=== PATIENT | female | born 1945 | race Caucasian/White ===

== ENCOUNTER 2020-07-02 14:43 | Emergency (ER) | payer MEDICARE, OTHER ==
[2020-07-02 14:48] VITALS: RESP 20; TEMP 98
[2020-07-02] MEDS ORDERED: SODIUM CHLORIDE 0.9% 500 ML 500 ML IV STA (15:01)
--- NOTE | 2020-07-02 15:29 | ED ---
Dizziness HPI - General Chief Complaint: Dizziness Stated Complaint: Dizziness Time Seen by Provider: 07/02/20 14:55 Source: patient, family Mode of arrival: wheelchair Limitations: no limitations - History of Present Illness Initial Comments: Patient is a 75-year-old female, with history of COPD, diabetes, hypertension, presenting to the emergency Department with complaints of dizzy spells that have been intermittent for the past few weeks. Patient is accompanied by her daughter. Patient states that for the last few weeks she feels dizzy, intermi ttently when she lays down for bed, when she sits up from bed, when she stands up from bed. Patient states the spells only last for a few seconds. Patient's daughter states that some of the spells she does not remember falling. One particular time patient stood up from her bed and then the next thing she remembered she was sitting on the floor. Daughter states she was only out for a few seconds. Another instance was patient climbing 2 flights of stairs, and then felt like she might fall down. Patient states she is not dizzy at this time. She denies any chest pain, fever, chills, abdominal pain, nausea, vomiting. Patient states she feels like she is a little short of breath but she also has COPD and that is normal for her. She denies any new medications recently. She states she is no longer taking aspirin, because "she does not want to." There are no further complaints at this time. Upon arrival to the ER, her vital signs are stable. - Related Data Home Medications Medication Instructions Recorded Confirmed Insulin NPH/Reg Insulin 70/30 38 unit SQ BID 02/13/16 02/13/16 [humuLIN 70/30 VIAL] Omeprazole 20 mg PO DAILY 02/13/16 02/13/16 Venlafaxine HCl ER [Effexor XR] 150 mg PO BID 02/13/16 02/13/16 metFORMIN HCL [Glucophage] 850 mg PO BID 02/13/16 02/13/16 Previous Rx's Medication Instructions Recorded Aspirin EC [Ecotrin] 325 mg PO DAILY #30 tablet. 02/16/16 Atorvastatin [Lipitor] 40 mg PO HS #30 tab 02/16/16 Nicotine 21Mg/24Hr Patch [Habitrol] 1 patch TRANSDERM DAILY #30 patch 02/16/16 gemfibroziL [Lopid] 600 mg PO AC-BID #60 tab 02/16/16 Cephalexin [Keflex] 500 mg PO BID 5 Days #10 cap 07/02/20 Allergies Allergy/AdvReac Type Severity Reaction Status Date / Time No Known Allergies Allergy Verified 07/02/20 14:48 Review of Systems ROS Statement: Those systems with pertinent positive or pertinent negative responses have been documented in the HPI. ROS Other: All systems not noted in ROS Statement are negative. Past Medical History Past Medical History: COPD, Diabetes Mellitus, GERD/Reflux Additional Past Medical History / Comment(s): IDDM, cystic breasts. History of Any Multi-Drug Resistant Organisms: None Reported Past Surgical History: Back Surgery, Breast Surgery, Cholecystectomy, Orthopedic Surgery, Tubal Ligation Additional Past Surgical History / Comment(s): Bilateral breast with cysts removed-benign, thoracic spine surgery, bilateral cataract removal with lens implants, vocal cord polyps removed-benign, colonoscopy with polyps removed- benign, bilateral feet bunionectomies. Past Anesthesia/Blood Transfusion Reactions: No Reported Reaction Additional Past Anesthesia/Blood Transfusion Reaction / Comment(s): Pt states she is clausterphobic Past Psychological History: Bipolar Smoking Status: Current every day smoker Past Alcohol Use History: None Reported Past Drug Use History: None Reported - Past Family History Mother Family Medical History: Cancer, Congestive Heart Failure (CHF) Additional Family Medical History / Comment(s): Mother at age 89 yrs. Father Family Medical History: No Reported History Additional Family Medical History / Comment(s): Father was almost 80 when he . General Exam - General Exam Comments Initial Comments: GENERAL: Patient is well-developed and well-nourished. Patient is nontoxic and in no acute distress. HEAD: Atraumatic, normocephalic. EYES: Pupils equal round and reactive to light, extraocular movements intact, sclera anicteric, conjunctiva are normal. Eyelids were unremarkable. ENT: TMs normal, nares patent, oropharynx clear without exudates. Moist mucous membranes. NECK: Normal range of motion, supple without lymphadenopathy or JVD. LUNGS: Unlabored respirations. Breath sounds clear to auscultation bilaterally and equal. No wheezes rales or rhonchi. HEART: Regular rate and rhythm without murmurs, rubs or gallops. ABDOMEN: Soft, nontender, normoactive bowel sounds. No guarding, no rebound. No masses appreciated. : Deferred MUSCULOSKELETAL: Normal extremities with adequate strength and normal range of motion, no pitting or edema. No clubbing or cyanosis. NEUROLOGICAL: Patient is alert and oriented x 3. Motor and sensory are also intact. Cranial nerves II through XII grossly intact. Symmetrical smile. Normal speech, normal gait. PSYCH: Normal mood, normal affect. SKIN: Warm, Dry, normal turgor, no rashes or lesions noted. Limitations: no limitations Course Vital Signs 07/02/20 07/02/20 07/02/20 14:44 15:22 16:04 Temperature 98.0 F Pulse Rate 106 H 98 94 Respiratory 20 20 20 Rate Blood Pressure 148/75 150/63 149/75 O2 Sat by Pulse 93 L 93 L Oximetry EKG Findings - EKG Comments: EKG Findings:: Sinus tach otherwise a normal ECG, no signs of acute ischemia. Ventricular rate 101, LA interval 150, QT 352. Similar to previous in 2016. Medical Decision Making - Medical Decision Making Patient is a 75-year-old female with history of COPD, diabetes, hypertension, presenting with intermittent dizzy episodes for the past few weeks when she changes positions. Patient has fallen to her knees before. Patient is afebrile. She denies being on blood thinners. She states she is not dizzy at this time, her exam is unremarkable, no acute findings, no neuro deficits. EKG shows no acute changes, lab workup is within normal limits, glucose is slightly elevated at 286, lactic acid is normal 1.7. Troponin is normal, chest x-ray shows no acute process. Urine does show significant amount of bacteria and WBCs. I discussed with patient that although she does have a UTI this may not be the reason for her dizzy episodes. I did recommend admission to the hospital for further workup with consults to cardiology however patient declined this. She states she will just follow up with her PCP. Patient will be given 1 g of Rocephin in the ER before discharge. I will continue patient on Keflex for UTI but I did urge patient to follow up with her PCP within one to 3 days. Patient is in agreement with this plan of care. Strict return parameters were discussed with the patient she verbalized understanding. Case discussed with Dr. Paul. - Lab Data Result diagrams: 07/02/20 15:12 07/02/20 15:12 Lab Results 07/02/20 07/02/20 07/02/20 Range/Units 15:12 15:12 15:12 WBC 8.3 (3.8-10.6) k/uL RBC 4.79 (3.80-5.40) m/uL Hgb 14.0 (11.4-16.0) gm/dL Hct 43.5 (34.0-46.0) % MCV 90.9 (80.0-100.0) fL MCH 29.3 (25.0-35.0) pg MCHC 32.3 (31.0-37.0) g/dL RDW 13.3 (11.5-15.5) % Plt Count 312 (150-450) k/uL Neutrophils % 60 % Lymphocytes % 27 % Monocytes % 6 % Eosinophils % 5 % Basophils % 1 % Neutrophils # 4.9 (1.3-7.7) k/uL Lymphocytes # 2.2 (1.0-4.8) k/uL Monocytes # 0.5 (0-1.0) k/uL Eosinophils # 0.4 (0-0.7) k/uL Basophils # 0.1 (0-0.2) k/uL PT 10.1 (9.0-12.0) sec INR 1.0 (<1.2) Sodium (137-145) mmol/L Potassium (3.5-5.1) mmol/L Chloride (98-107) mmol/L Carbon Dioxide (22-30) mmol/L Anion Gap mmol/L BUN (7-17) mg/dL Creatinine (0.52-1.04) mg/dL Est GFR (CKD-EPI)AfAm (>60 ml/min/1.73 sqM) Est GFR (CKD-EPI)NonAf (>60 ml/min/1.73 sqM) Glucose (74-99) mg/dL Plasma Lactic Acid Kain (0.7-2.0) mmol/L Calcium (8.4-10.2) mg/dL Total Bilirubin (0.2-1.3) mg/dL AST (14-36) U/L ALT (4-34) U/L Alkaline Phosphatase (38-126) U/L Troponin I (0.000-0.034) ng/mL Total Protein (6.3-8.2) g/dL Albumin (3.5-5.0) g/dL Urine Color Yellow Urine Appearance Cloudy H (Clear) Urine pH 5.5 (5.0-8.0) Ur Specific [place] 1.023 (1.001-1.035) Urine Protein Negative (Negative) Urine Glucose (UA) 3+ H (Negative) Urine Ketones Trace H (Negative) Urine Blood Trace H (Negative) Urine Nitrite Negative (Negative) Urine Bilirubin Negative (Negative) Urine Urobilinogen <2.0 (<2.0) mg/dL Ur Leukocyte Esterase Large H (Negative) Urine RBC 9 H (0-5) /hpf Urine WBC 59 H (0-5) /hpf Ur Squamous Epith Cells 14 H (0-4) /hpf Urine Bacteria Moderate H (None) /hpf Urine Mucus Rare H (None) /hpf 07/02/20 07/02/20 07/02/20 Range/Units 15:12 15:12 15:12 WBC (3.8-10.6) k/uL RBC (3.80-5.40) m/uL Hgb (11.4-16.0) gm/dL Hct (34.0-46.0) % MCV (80.0-100.0) fL MCH (25.0-35.0) pg MCHC (31.0-37.0) g/dL RDW (11.5-15.5) % Plt Count (150-450) k/uL Neutrophils % % Lymphocytes % % Monocytes % % Eosinophils % % Basophils % % Neutrophils # (1.3-7.7) k/uL Lymphocytes # (1.0-4.8) k/uL Monocytes # (0-1.0) k/uL Eosinophils # (0-0.7) k/uL Basophils # (0-0.2) k/uL PT (9.0-12.0) sec INR (<1.2) Sodium 135 L (137-145) mmol/L Potassium 4.4 (3.5-5.1) mmol/L Chloride 102 (98-107) mmol/L Carbon Dioxide 25 (22-30) mmol/L Anion Gap 8 mmol/L BUN 16 (7-17) mg/dL Creatinine 0.67 (0.52-1.04) mg/dL Est GFR (CKD-EPI)AfAm >90 (>60 ml/min/1.73 sqM) Est GFR (CKD-EPI)NonAf 86 (>60 ml/min/1.73 sqM) Glucose 286 H (74-99) mg/dL Plasma Lactic Acid Kain 1.7 (0.7-2.0) mmol/L Calcium 9.3 (8.4-10.2) mg/dL Total Bilirubin 0.4 (0.2-1.3) mg/dL AST 23 (14-36) U/L ALT 14 (4-34) U/L Alkaline Phosphatase 73 (38-126) U/L Troponin I <0.012 (0.000-0.034) ng/mL Total Protein 6.9 (6.3-8.2) g/dL Albumin 4.0 (3.5-5.0) g/dL Urine Color Urine Appearance (Clear) Urine pH (5.0-8.0) Ur Specific [place] (1.001-1.035) Urine Protein (Negative) Urine Glucose (UA) (Negative) Urine Ketones (Negative) Urine Blood (Negative) Urine Nitrite (Negative) Urine Bilirubin (Negative) Urine Urobilinogen (<2.0) mg/dL Ur Leukocyte Esterase (Negative) Urine RBC (0-5) /hpf Urine WBC (0-5) /hpf Ur Squamous Epith Cells (0-4) /hpf Urine Bacteria (None) /hpf Urine Mucus (None) /hpf Disposition Clinical Impression: Dizzy spells, UTI (urinary tract infection) Disposition: HOME SELF-CARE Condition: Stable Instructions (If sedation given, give patient instructions): Urinary Tract Infection in Women (ED), Dizziness (ED) Additional Instructions: Please return to the Emergency Department if symptoms worsen or any other concerns. Take antibiotics as prescribed. Follow up with PCP within 1-3 days. Prescriptions: Cephalexin [Keflex] 500 mg PO BID 5 Days #10 cap Is patient prescribed a controlled substance at d/c from ED?: No Referrals: Alexander Barros MD [Primary Care Provider] - 1-2 days
[2020-07-02 15:32] LABS: Basophils # (A) 0.1 k/uL (0-0.2); Basophils % (A) 1 %; Eosinophils # (A) 0.4 k/uL (0-0.7); Eosinophils % (A) 5 %; HCT 43.5 % (34.0-46.0); Lymphocytes # (A) 2.2 k/uL (1.0-4.8); Lymphocytes % (A) 27 %; MCH 29.3 pg (25.0-35.0); MCHC 32.3 g/dL (31.0-37.0); MCV 90.9 fL (80.0-100.0); Mean Platelet Volume 6.8; Monocytes # (A) 0.5 k/uL (0-1.0); Monocytes % (A) 6 %; Neutrophils # (A) 4.9 k/uL (1.3-7.7); Neutrophils % (A) 60 %; Platelet Count 312 k/uL (150-450); RBC 4.79 m/uL (3.80-5.40); RDW 13.3 % (11.5-15.5); WBC 8.3 k/uL (3.8-10.6)
[2020-07-02 15:44] LABS: ALT 14 U/L (4-34); AST 23 U/L (14-36); African American GFR (CKD) >90 (>60 ml/min/1.73 sqM); Alkaline Phosphatase 73 U/L (38-126); Anion Gap 8 mmol/L; Blood Urea Nitrogen 16 mg/dL (7-17); Calcium 9.3 mg/dL (8.4-10.2); Carbon Dioxide 25 mmol/L (22-30); Chloride 102 mmol/L (98-107); Glucose 286 mg/dL (74-99); Non-African American GFR(CKD) 86 (>60 ml/min/1.73 sqM); Potassium 4.4 mmol/L (3.5-5.1); Sodium 135 mmol/L (137-145); Total Bilirubin 0.4 mg/dL (0.2-1.3); Total Protein 6.9 g/dL (6.3-8.2)
[2020-07-02 15:50] LABS: Prothrombin Time 10.1 sec (9.0-12.0)
--- NOTE | 2020-07-02 16:07 | XR ---
EXAMINATION TYPE: XR chest 2V DATE OF EXAM: 07/02/2020 COMPARISON: 02/13/2016 HISTORY: Shortness of breath TECHNIQUE: Frontal and lateral views of the chest are obtained. FINDINGS: Scattered senescent parenchymal changes noted. Hyperinflation compatible with COPD. No evidence for infiltrate. No evidence for atelectasis. Heart size is stable. Mediastinal structures are stable and grossly unremarkable. No evidence for hilar prominence. Degenerative changes dorsal spine. IMPRESSION: 1. No evidence for acute pulmonary disease.
[2020-07-02 17:22] LABS: Appearance,Urine Cloudy (Clear); Bacteria,Urine Moderate /hpf; Bilirubin,Urine Negative (Negative); Blood,Urine Trace (Negative); Color,Urine Yellow; Glucose,Urine (UA) 3+ (Negative); Ketones,Urine Trace (Negative); Leukocyte Esterase,Urine Large (Negative); Mucus,Urine Rare /hpf; Nitrite,Urine Negative (Negative); PH, Urine 5.5 (5.0-8.0); Protein,Urine Negative (Negative); RBC,Urine 9 /hpf (0-5); Specific Gravity,Urine 1.023 (1.001-1.035); Squamous Epithelial Cell,Urine 14 /hpf (0-4); Urobilinogen,Urine <2.0 mg/dL (<2.0); WBC,Urine 59 /hpf (0-5)
[2020-07-02] MEDS ORDERED: cefTRIAXone IN SWFI 1,000 MG/10 ML SYRINGE IVP STA (17:24)
[2020-07-02 17:48] VITALS: BP 192/91; PULSE 90
== END 2020-07-02 18:02 | disposition home or self-care (01) ==
LOC: EC 14:43
DX: N39.0 Urinary tract infection, site not specified (principal); R42 Dizziness and giddiness; E11.9 Type 2 diabetes mellitus without complications; K21.9 Gastro-esophageal reflux disease without esophagitis; I10 Essential (primary) hypertension; F31.9 Bipolar disorder, unspecified; F17.200 Nicotine dependence, unspecified, uncomplicated; Z79.4 Long term (current) use of insulin; Z79.899 Other long term (current) drug therapy
CPT/HCPCS: 36415; 93005; 80053; 83605; 84484; 85025; 85610; 81001; 87086; 71046; 99284; 96374; 96361; J0696

== ENCOUNTER 2023-12-18 08:59 | Inpatient (IN) | payer MEDICARE ==
[2023-12-18] MEDS: IPRATROPIUM-ALBUTEROL 3 ML NEB INHALATION STA (09:09)
--- NOTE | 2023-12-18 09:11 | ED ---
General Adult HPI - General Chief complaint: Shortness of Breath Stated complaint: KATJA Time Seen by Provider: 12/18/23 09:01 Source: patient, EMS, RN notes reviewed Mode of arrival: EMS Limitations: no limitations - History of Present Illness Initial comments: Patient is a 78-year-old female presenting to the emergency department by EMS for difficulty breathing. Onset of symptoms was couple of days ago. History is limited by patient secondary to dyspnea. Majority of history comes by EMS. Patient does have history of COPD. Patient agrees this is similar to her previous COPD. Patient did receive 2 nebulizer treatments and IM Solu-Medrol by EMS. Patient has been on CPAP. Patient converted BiPAP in the emergency department upon arrival - Related Data Home Medications Medication Instructions Recorded Confirmed Insulin NPH/Reg Insulin 70/30 38 unit SQ BID 02/13/16 02/13/16 [humuLIN 70/30 VIAL] Omeprazole 20 mg PO DAILY 02/13/16 02/13/16 Venlafaxine HCl ER [Effexor XR] 150 mg PO BID 02/13/16 02/13/16 metFORMIN HCL [Glucophage] 850 mg PO BID 02/13/16 02/13/16 Previous Rx's Medication Instructions Recorded Aspirin EC [Ecotrin] 325 mg PO DAILY #30 tablet. 02/16/16 Atorvastatin [Lipitor] 40 mg PO HS #30 tab 02/16/16 Nicotine 21Mg/24Hr Patch [Habitrol] 1 patch TRANSDERM DAILY #30 patch 02/16/16 gemfibroziL [Lopid] 600 mg PO AC-BID #60 tab 02/16/16 Cephalexin [Keflex] 500 mg PO BID 5 Days #10 cap 07/02/20 Allergies Allergy/AdvReac Type Severity Reaction Status Date / Time No Known Allergies Allergy Verified 07/02/20 14:48 Review of Systems ROS Statement: Those systems with pertinent positive or pertinent negative responses have been documented in the HPI. ROS Other: All systems not noted in ROS Statement are negative. Constitutional: Denies: fever Eyes: Denies: eye pain Respiratory: Reports: as per HPI, cough, dyspnea Past Medical History Past Medical History: COPD, Diabetes Mellitus, GERD/Reflux Additional Past Medical History / Comment(s): IDDM, cystic breasts. History of Any Multi-Drug Resistant Organisms: None Reported Past Surgical History: Back Surgery, Breast Surgery, Cholecystectomy, Orthopedic Surgery, Tubal Ligation Additional Past Surgical History / Comment(s): Bilateral breast with cysts removed-benign, thoracic spine surgery, bilateral cataract removal with lens implants, vocal cord polyps removed-benign, colonoscopy with polyps removed- benign, bilateral feet bunionectomies. Past Anesthesia/Blood Transfusion Reactions: No Reported Reaction Additional Past Anesthesia/Blood Transfusion Reaction / Comment(s): Pt states she is clausterphobic Past Psychological History: Bipolar Smoking Status: Current every day smoker Past Alcohol Use History: None Reported Past Drug Use History: None Reported - Past Family History Mother Family Medical History: Cancer, Congestive Heart Failure (CHF) Additional Family Medical History / Comment(s): Mother at age 89 yrs. Father Family Medical History: No Reported History Additional Family Medical History / Comment(s): Father was almost 80 when he . General Exam Limitations: physical limitation General appearance: alert Head exam: Present: atraumatic Eye exam: Present: normal appearance Respiratory exam: Present: respiratory distress, wheezes, decreased breath sounds Cardiovascular Exam: Present: tachycardia GI/Abdominal exam: Present: soft. Absent: tenderness Extremities exam: Present: normal inspection. Absent: pedal edema, calf te nderness Neurological exam: Present: alert Psychiatric exam: Present: anxious Skin exam: Present: normal color Course Vital Signs 12/18/23 12/18/23 12/18/23 09:00 09:07 09:09 Temperature 94.6 F L Pulse Rate 120 H 118 H Respiratory 24 Rate Blood Pressure 162/130 O2 Sat by Pulse 99 Oximetry Fraction of 40 40 Inspired Oxygen (FIO2) 12/18/23 12/18/23 12/18/23 09:19 09:20 09:29 Temperature Pulse Rate 99 99 108 H Respiratory Rate Blood Pressure O2 Sat by Pulse Oximetry Fraction of Inspired Oxygen (FIO2) 12/18/23 10:15 Temperature 97.6 F Pulse Rate 105 H Respiratory 24 Rate Blood Pressure 164/86 O2 Sat by Pulse 98 Oximetry Fraction of Inspired Oxygen (FIO2) EKG Findings - EKG Results: EKG: interpreted by ERMD (Significant artifact is present. Nonspecific ST-T), sinus rhythm, normal axis, normal QRS EKG shows: tachycardia Medical Decision Making - Medical Decision Making Was pt. sent in by a medical professional or institution (, PA, CUSTOMER RELATIONS REPRESENTATIVE, urgent care, hospital, or correction...) When possible be specific @ -No Did you speak to anyone other than the patient for history (EMS, parent, family, police, friend...)? What history was obtained from this source @ -EMS provides majority of history as patient is in respiratory distress on arrival Did you review nursing and triage notes (agree or disagree)? Why? @ -I reviewed and agree with nursing and triage notes Were old charts reviewed (outside hosp., previous admission, EMS record, old EKG, old radiological studies, urgent care reports/EKG's, correction records)? Report findings @ -Previous chest x-ray reviewed Differential Diagnosis (chest pain, altered mental status, abdominal pain women, abdominal pain men, vaginal bleeding, weakness, fever, dyspnea, syncope, headache, dizziness, GI bleed, back pain, seizure, CVA, palpatations, mental health, musculoskeletal)? @ -Differential Dyspnea: Coronary syndrome, arrhythmia, tamponade, asthma, COPD, pulmonary embolism, pneumonia, pneumothorax, pulmonary effusion, anaphylaxis, diabetic ketoacidosis, flailed chest, pulmonary contusion, diaphragmatic rupture, anemia, neuromuscular, this is not meant to be an all-inclusive list. EKG interpreted by me (3pts min.). @ -As above X-rays interpreted by me (1pt min.). @ -Chest x-ray shows some increased interstitial markings. CT interpreted by me (1pt min.). @ -None done U/S interpreted by me (1pt. min.). @ -None done What testing was considered but not performed or refused? (CT, X-rays, U/S, labs)? Why? @ -None What meds were considered but not given or refused? Why? @ -None Did you discuss the management of the patient with other professionals (professionals i.e. , PA, CUSTOMER RELATIONS REPRESENTATIVE, lab, RT, psych nurse, social media senior associate, portable canteen operator, teacher, water resources technical officer, pillowcase cutter)? Give summary @ -Case was discussed with Dr. Bryan, who will admit covering hospital call. Was smoking cessation discussed for >3mins.? @ -No Was critical care preformed (if so, how long)? @ -31 minutes critical care Were there social determinants of health that impacted care today? How? (Homelessness, low income, unemployed, alcoholism, drug addiction, transportation, low edu. Level, literacy, decrease access to med. care, [facility], rehab)? @ -No Was there de-escalation of care discussed even if they declined (Discuss DNR or withdrawal of care, Hospice)? DNR status @ -No What co-morbidities impacted this encounter? (DM, HTN, Smoking, COPD, CAD, Cancer, CVA, ARF, Chemo, Hep., AIDS, mental health diagnosis, sleep apnea, morbid obesity)? @ -None Was patient admitted / discharged? Hospital course, mention meds given and route, prescriptions, significant lab abnormalities, going to OR and other pertinent info. @ -Patient reevaluated several times. Patient significantly improved with BiPAP. Family updated. Patient will be admitted. Patient will need pulmonary consult for respiratory failure. Patient will need further cardiac testing. Undiagnosed new problem with uncertain prognosis? @ -No Drug Therapy requiring intensive monitoring for toxicity (Heparin, Nitro, Insulin, Cardizem)? @ -No Were any procedures done? @ -No Diagnosis/symptom? @ -COPD, respiratory failure Acute, or Chronic, or Acute on Chronic? @ -Acute on chronic, acute Uncomplicated (without systemic symptoms) or Complicated (systemic symptoms)? @ -Complicated with respiratory failure Side effects of treatment? @ -No Exacerbation, Progression, or Severe Exacerbation? @ -Exacerbation of COPD Poses a threat to life or bodily function? How? (Chest pain, USA, CA, pneumonia, PE, COPD, DKA, ARF, appy, cholecystitis, CVA, Diverticulitis, Homicidal, Suicidal, threat to staff... and all critical care pts) @Potential for respiratory arrest - Lab Data Result diagrams: 12/18/23 09:11 12/18/23 09:11 Lab Results 12/18/23 12/18/23 12/18/23 Range/Units 09:11 09:11 09:11 WBC 10.4 (3.8-10.6) k/uL RBC 4.42 (3.80-5.40) m/uL Hgb 13.4 (11.4-16.0) gm/dL Hct 41.7 (34.0-46.0) % MCV 94.3 (80.0-100.0) fL MCH 30.3 (25.0-35.0) pg MCHC 32.1 (31.0-37.0) g/dL RDW 13.7 (11.5-15.5) % Plt Count 352 (150-450) k/uL MPV 7.5 Neutrophils % 78 % Lymphocytes % 14 % Monocytes % 4 % Eosinophils % 2 % Basophils % 0 % Neutrophils # 8.2 H (1.3-7.7) k/uL Lymphocytes # 1.5 (1.0-4.8) k/uL Monocytes # 0.4 (0-1.0) k/uL Eosinophils # 0.2 (0-0.7) k/uL Basophils # 0.0 (0-0.2) k/uL Hypochromasia Slight PT 11.2 (10.0-12.5) sec INR 1.0 (<1.2) APTT 21.7 L (22.0-30.0) sec Sodium 137 (137-145) mmol/L Potassium 4.8 (3.5-5.1) mmol/L Chloride 105 (98-107) mmol/L Carbon Dioxide 19 L (22-30) mmol/L Anion Gap 13 mmol/L BUN 21 H (7-17) mg/dL Creatinine 0.82 (0.52-1.04) mg/dL Est GFR (CKD-EPI)AfAm 79 (>60 ml/min/1.73 sqM) Est GFR (CKD-EPI)NonAf 69 (>60 ml/min/1.73 sqM) Glucose 272 H (74-99) mg/dL POC Glucose (mg/dL) (70-110) mg/dL POC Glu Client Service Associate ID Plasma Lactic Acid Kain (0.7-2.0) mmol/L Calcium 9.0 (8.4-10.2) mg/dL Magnesium 1.4 L (1.6-2.3) mg/dL Total Bilirubin 0.4 (0.2-1.3) mg/dL AST 32 (14-36) U/L ALT 23 (4-34) U/L Alkaline Phosphatase 105 (38-126) U/L Troponin I (0.000-0.034) ng/mL NT-Pro-B Natriuret Pep 3440 pg/mL Total Protein 7.2 (6.3-8.2) g/dL Albumin 4.1 (3.5-5.0) g/dL Influenza Type A (PCR) (Not Detectd) Influenza Type B (PCR) (Not Detectd) RSV (PCR) (Not Detectd) SARS-CoV-2 (PCR) (Not Detectd) 12/18/23 12/18/23 12/18/23 Range/Units 09:11 09:11 09:11 WBC (3.8-10.6) k/uL RBC (3.80-5.40) m/uL Hgb (11.4-16.0) gm/dL Hct (34.0-46.0) % MCV (80.0-100.0) fL MCH (25.0-35.0) pg MCHC (31.0-37.0) g/dL RDW (11.5-15.5) % Plt Count (150-450) k/uL MPV Neutrophils % % Lymphocytes % % Monocytes % % Eosinophils % % Basophils % % Neutrophils # (1.3-7.7) k/uL Lymphocytes # (1.0-4.8) k/uL Monocytes # (0-1.0) k/uL Eosinophils # (0-0.7) k/uL Basophils # (0-0.2) k/uL Hypochromasia PT (10.0-12.5) sec INR (<1.2) APTT (22.0-30.0) sec Sodium (137-145) mmol/L Potassium (3.5-5.1) mmol/L Chloride (98-107) mmol/L Carbon Dioxide (22-30) mmol/L Anion Gap mmol/L BUN (7-17) mg/dL Creatinine (0.52-1.04) mg/dL Est GFR (CKD-EPI)AfAm (>60 ml/min/1.73 sqM) Est GFR (CKD-EPI)NonAf (>60 ml/min/1.73 sqM) Glucose (74-99) mg/dL POC Glucose (mg/dL) (70-110) mg/dL POC Glu Client Service Associate ID Plasma Lactic Acid Kain 1.4 (0.7-2.0) mmol/L Calcium (8.4-10.2) mg/dL Magnesium (1.6-2.3) mg/dL Total Bilirubin (0.2-1.3) mg/dL AST (14-36) U/L ALT (4-34) U/L Alkaline Phosphatase (38-126) U/L Troponin I 0.153 H* (0.000-0.034) ng/mL NT-Pro-B Natriuret Pep pg/mL Total Protein (6.3-8.2) g/dL Albumin (3.5-5.0) g/dL Influenza Type A (PCR) Not Detected (Not Detectd) Influenza Type B (PCR) Not Detected (Not Detectd) RSV (PCR) Not Detected (Not Detectd) SARS-CoV-2 (PCR) Not Detected (Not Detectd) 12/18/23 Range/Units 10:08 WBC (3.8-10.6) k/uL RBC (3.80-5.40) m/uL Hgb (11.4-16.0) gm/dL Hct (34.0-46.0) % MCV (80.0-100.0) fL MCH (25.0-35.0) pg MCHC (31.0-37.0) g/dL RDW (11.5-15.5) % Plt Count (150-450) k/uL MPV Neutrophils % % Lymphocytes % % Monocytes % % Eosinophils % % Basophils % % Neutrophils # (1.3-7.7) k/uL Lymphocytes # (1.0-4.8) k/uL Monocytes # (0-1.0) k/uL Eosinophils # (0-0.7) k/uL Basophils # (0-0.2) k/uL Hypochromasia PT (10.0-12.5) sec INR (<1.2) APTT (22.0-30.0) sec Sodium (137-145) mmol/L Potassium (3.5-5.1) mmol/L Chloride (98-107) mmol/L Carbon Dioxide (22-30) mmol/L Anion Gap mmol/L BUN (7-17) mg/dL Creatinine (0.52-1.04) mg/dL Est GFR (CKD-EPI)AfAm (>60 ml/min/1.73 sqM) Est GFR (CKD-EPI)NonAf (>60 ml/min/1.73 sqM) Glucose (74-99) mg/dL POC Glucose (mg/dL) 280 H (70-110) mg/dL POC Glu Client Service Associate ID Priscilla Fisher Plasma Lactic Acid Kain (0.7-2.0) mmol/L Calcium (8.4-10.2) mg/dL Magnesium (1.6-2.3) mg/dL Total Bilirubin (0.2-1.3) mg/dL AST (14-36) U/L ALT (4-34) U/L Alkaline Phosphatase (38-126) U/L Troponin I (0.000-0.034) ng/mL NT-Pro-B Natriuret Pep pg/mL Total Protein (6.3-8.2) g/dL Albumin (3.5-5.0) g/dL Influenza Type A (PCR) (Not Detectd) Influenza Type B (PCR) (Not Detectd) RSV (PCR) (Not Detectd) SARS-CoV-2 (PCR) (Not Detectd) Critical Care Time Critical Care Time: Yes Total Critical Care Time: 31 Disposition Clinical Impression: Acute exacerbation of chronic obstructive pulmonary disease, Acute respiratory failure Disposition: ADMITTED IP TO THIS [facility] Condition: Serious Is patient prescribed a controlled substance at d/c from ED?: No Referrals: Alexander Barros MD [Primary Care Provider] - 1-2 days Time of Disposition: 10:44
[2023-12-18] MEDS: LORazepam 2 MG/ML INJ IV STA ×2 (09:19→10:34)
[2023-12-18 09:27] LABS: Basophils % (A) 0 %; Eosinophils # (A) 0.2 k/uL (0-0.7); Eosinophils % (A) 2 %; HCT 41.7 % (34.0-46.0); HGB 13.4 gm/dL (11.4-16.0); Hypochromasia Slight; Lymphocytes # (A) 1.5 k/uL (1.0-4.8); Lymphocytes % (A) 14 %; MCH 30.3 pg (25.0-35.0); MCHC 32.1 g/dL (31.0-37.0); MCV 94.3 fL (80.0-100.0); Mean Platelet Volume 7.5; Monocytes # (A) 0.4 k/uL (0-1.0); Monocytes % (A) 4 %; Neutrophils # (A) 8.2 k/uL (1.3-7.7); Neutrophils % (A) 78 %; Platelet Count 352 k/uL (150-450); RBC 4.42 m/uL (3.80-5.40); RDW 13.7 % (11.5-15.5); WBC 10.4 k/uL (3.8-10.6)
--- NOTE | 2023-12-18 09:29 | XR ---
EXAMINATION TYPE: XR chest 1V portable DATE OF EXAM: 12/18/2023 COMPARISON: 02/13/2016 HISTORY: Difficulty breathing TECHNIQUE: Single frontal view of the chest is obtained. FINDINGS: There is moderate cardiomegaly, pulmonary vascular congestion and mild interstitial edema. The findin gs are consistent with CHF. There is no large pleural effusion. There is no pneumothorax. The osseous structures are intact. IMPRESSION: Acute cardiopulmonary disease most consistent with CHF.
[2023-12-18 09:45] LABS: Prothrombin Time 11.2 sec (10.0-12.5)
[2023-12-18 09:51] LABS: ALT 23 U/L (4-34); AST 32 U/L (14-36); African American GFR (CKD) 79 (>60 ml/min/1.73 sqM); Albumin 4.1 g/dL (3.5-5.0); Alkaline Phosphatase 105 U/L (38-126); Anion Gap 13 mmol/L; Blood Urea Nitrogen 21 mg/dL (7-17); Carbon Dioxide 19 mmol/L (22-30); Chloride 105 mmol/L (98-107); Glucose 272 mg/dL (74-99); Magnesium 1.4 mg/dL (1.6-2.3); Non-African American GFR(CKD) 69 (>60 ml/min/1.73 sqM); Potassium 4.8 mmol/L (3.5-5.1); Sodium 137 mmol/L (137-145); Total Bilirubin 0.4 mg/dL (0.2-1.3); Total Protein 7.2 g/dL (6.3-8.2)
[2023-12-18 09:56] LABS: Partial Thromboplastin Time 21.7 sec (22.0-30.0)
[2023-12-18 10:10] LABS: Glucose,Whole Blood 280 mg/dL (70-110)
[2023-12-18 10:28] LABS: NT-Pro-B-Type Natriuretic Pept 3440 pg/mL
[2023-12-18] MEDS ORDERED: NALOXONE 0.4 MG/ML 1 ML VIAL IVP PRN (10:46)
[2023-12-18] MEDS ORDERED: ACETAMINOPHEN TAB 325 MG TAB PO PRN (10:46)
[2023-12-18] MEDS: IPRATROPIUM-ALBUTEROL 3 ML NEB INHALATION SCH (11:23)
[2023-12-18] MEDS: FUROSEMIDE 10 MG/ML 4 ML VIAL IV STA ×2 (12:08→15:30)
[2023-12-18] MEDS: methylPREDNISolone SOD SUCCI 125 MG/2 ML VIAL IV STA (12:08)
[2023-12-18] MEDS: AZITHROMYCIN 500 MG in SODIUM CHLORIDE 0.9% 250 ML IVPB SCH (12:13)
[2023-12-18] MEDS ORDERED: bisacodyL 5 MG TABLET.DR PO PRN (12:35)
[2023-12-18] MEDS ORDERED: NICOTINE GUM (POLACRILEX) 2 MG GUM BUCCAL PRN (12:35)
[2023-12-18] MEDS ORDERED: MELATONIN 3 MG TABLET PO PRN (12:35)
[2023-12-18] MEDS ORDERED: ONDANSETRON 4 MG/2 ML VIAL IVP PRN (12:35)
[2023-12-18] MEDS ORDERED: FUROSEMIDE 10 MG/ML 4 ML VIAL IV SCH (12:45)
[2023-12-18] MEDS ORDERED: DEXTROSE 50% SYRINGE 50 ML IVP PRN ×2 (12:47)
--- NOTE | 2023-12-18 12:50 | P.HPIM ---
History of Present Illness H&P Date: 12/18/23 Patient is a 78-year-old female with a history of COPD with ongoing tobacco abuse, insulin-dependent diabetes, and acid reflux who presented to the ER due to worsening shortness of breath. On arrival to the ER her vital signs were remarkable for a pulse of 120, blood pressure 162/30. She had excessive work of breathing and was therefore placed on BiPAP. Laboratory analysis included CBC, coags, CMP, troponin, and BNP which were remarkable for carbon dioxide 19, anion gap 13, glucose 272, magnesium 1.4, troponin 0.153, and BNP 3440. Chest x-ray was consitent with increased pulmonary vasculature. She was given steroids, bronchodilators, and Lasix in the emergency department. She was placed on Zithromax. Case was discussed with pulmonary who recommended admission to the ICU. Patient seen and examined at bedside. She is sedated after getting Ativan. She does arouse to touch but is unable to answer questions. Daughters present at bedside. They report that she called today at 8 AM saying that she could not breathe. The daughter proceeded to her house and then called EMS as she was unable to move due to being so short of breath. Her other daughter reported that she has had diarrhea for the last week and has been unable to eat or drink much. She has been wearing depends for this. She smokes approximately 2 packs/day. Vital signs reviewed General: Ill-appearing, moderate distress, appears at stated age Derm: warm, dry Eyes: EOMI, no lid lag, anicteric sclera, ENT: Nose and ears atraumatic Cardiovascular: S1S2 tachycardic, no murmur, no edema Lungs: Coarse breath sounds bilateral, no rhonchi, no rales, no wheeze, no accessory muscle use, BiPAP in place Abdominal: soft, nontender to palpation, no guarding Ext: no gross muscle atrophy, no contractures Neuro: CN II-XII grossly intact, No focal neuro deficits Psych: Opens eyes and is able to follow simple commands Assessment/Plan: Acute exacerbation of COPD Acute hypoxic respiratory failure Elevated BNP with increased pulmonary vascular on chest x-ray concern for new onset congestive heart failure Elevated troponin, consistent with type II myocardial infarction from work of breathing -Admit patient to ICU. Case discussed with Dr. Leija who is accepted the patient. -Solu-Medrol 60 mg IV every 6 hours, DuoNeb 4 times daily and every 2 hours as needed, Zithromax 500 mg IV daily dose #1 of 3 -Serial troponin, aspirin, check echocardiogram, telemetry -Wean O2 as able Diabetes mellitus type 2 insulin requiring with hyperglycemia -Start sliding scale insulin and Levemir 10 units at night GERD -Protonix 40 mg daily Tobacco absue - cessation - nicotine patch 21 mcg daily Imaging: As per HPI Data Review: As per HPI The patient is admitted with an anticipated greater than 2 midnight stay for evaluation of acute exacerbation of COPD. Surrogate decision-maker: Daughters CODE STATUS: Okay with elective intubation, no CPR DVT prophylaxis: Lovenox Anticipated discharge date: Pending clinical course Anticipated discharge place: Pending clinical course This dictation was prepared using [employer] voice recognition software. Though every attempt is made to correct errors during dictation some may still exist. Past Medical History Past Medical History: COPD, Diabetes Mellitus, GERD/Reflux Additional Past Medical History / Comment(s): IDDM, cystic breasts. History of Any Multi-Drug Resistant Organisms: None Reported Past Surgical History: Back Surgery, Breast Surgery, Cholecystectomy, Orthopedic Surgery, Tubal Ligation Additional Past Surgical History / Comment(s): Bilateral breast with cysts removed-benign, thoracic spine surgery, bilateral cataract removal with lens implants, vocal cord polyps removed-benign, colonoscopy with polyps removed- benign, bilateral feet bunionectomies. Past Anesthesia/Blood Transfusion Reactions: No Reported Reaction Additional Past Anesthesia/Blood Transfusion Reaction / Comment(s): Pt states she is clausterphobic Past Psychological History: Bipolar Smoking Status: Current every day smoker Past Alcohol Use History: None Reported Past Drug Use History: None Reported - Past Family History Mother Family Medical History: Cancer, Congestive Heart Failure (CHF) Additional Family Medical History / Comment(s): Mother at age 89 yrs. Father Family Medical History: No Reported History Additional Family Medical History / Comment(s): Father was almost 80 when he . Medications and Allergies Home Medications Medication Instructions Recorded Confirmed Type Omeprazole 20 mg PO BID 02/13/16 12/18/23 History Venlafaxine HCl ER [Effexor XR] 150 mg PO BID 02/13/16 12/18/23 History Atorvastatin [Lipitor] 40 mg PO HS #30 tab 02/16/16 12/18/23 Rx Albuterol Inhaler [Ventolin Hfa 1 - 2 puff INHALATION RT-Q6H PRN 12/18/23 12/18/23 History Inhaler] Insulin Regular, Human [NovoLIN R] 30 unit SQ DIRECTED 12/18/23 12/18/23 History Lisinopril-Hctz 10-12.5 mg 1 tab PO DIRECTED 12/18/23 12/18/23 History [Zestoretic 10-12.5] Salmeterol 50 mcg [Serevent Diskus] 1 puff INHALATION RT-BID 12/18/23 12/18/23 History Umeclidinium Brm/Vilanterol Tr 1 puff INHALATION RT-DAILY 12/18/23 12/18/23 History [Anoro Ellipta 62.5-25 Mcg INH] metFORMIN HCL 500 mg PO BID 12/18/23 12/18/23 History Allergies Allergy/AdvReac Type Severity Reaction Status Date / Time No Known Allergies Allergy Verified 12/18/23 11:47 Physical Exam Osteopathic Statement: *. No significant issues noted on an osteopathic structural exam other than those noted in the History and Physical/Consult. Vitals: Vital Signs Temp Pulse Resp BP Pulse Ox FiO2 12/18/23 12:29 98.3 F 98 24 157/80 97 12/18/23 10:15 97.6 F 105 H 24 164/86 98 12/18/23 09:29 108 H 12/18/23 09:20 99 12/18/23 09:19 99 12/18/23 09:09 118 H 40 12/18/23 09:07 40 12/18/23 09:00 94.6 F L 120 H 24 162/130 99 Intake and Output 12/17/23 12/18/23 12/18/23 22:59 06:59 14:59 Other: Weight 94.801 kg Results CBC & Chem 7: 12/18/23 09:11 12/18/23 09:11 Labs: Abnormal Lab Results - Last 24 Hours (Table) 12/18/23 12/18/23 12/18/23 Range/Units 09:11 09:11 09:11 Neutrophils # 8.2 H (1.3-7.7) k/uL APTT 21.7 L (22.0-30.0) sec Carbon Dioxide 19 L (22-30) mmol/L BUN 21 H (7-17) mg/dL Glucose 272 H (74-99) mg/dL POC Glucose (mg/dL) (70-110) mg/dL Magnesium 1.4 L (1.6-2.3) mg/dL Troponin I (0.000-0.034) ng/mL 12/18/23 12/18/23 Range/Units 09:11 10:08 Neutrophils # (1.3-7.7) k/uL APTT (22.0-30.0) sec Carbon Dioxide (22-30) mmol/L BUN (7-17) mg/dL Glucose (74-99) mg/dL POC Glucose (mg/dL) 280 H (70-110) mg/dL Magnesium (1.6-2.3) mg/dL Troponin I 0.153 H* (0.000-0.034) ng/mL
[2023-12-18 13:12] LABS: Glucose,Whole Blood 264 mg/dL (70-110)
--- NOTE | 2023-12-18 14:39 | P.CRDCN ---
History of Present Illness Consult date: 12/18/23 History of present illness: HISTORY OF PRESENTING ILLNESS 78-year-old female who has not seen any physicians in the recent past presented to the hospital because of 1 week of worsening shortness of breath. She also reports symptoms of orthopnea and paroxysmal nocturnal dyspnea. She was getting short of breath getting up and going to the bathroom putting her at NYHA class III symptoms. She reports history of hypertension, dyslipidemia, diabetes, prior history of [facility] roke with no residual deficits. She denies any prior history of malignancies. She has had breast lumpectomy in the past. On admission her initial troponin was 0.15, BNP 3000, creatinine 0.8, hemoglobin 13.4 CXR showing bilateral pulmonary congestion ECG shows sinus rhythm with nonspecific ST changes in lateral leads REVIEW OF SYSTEMS 14 point review of system is negative except what is mentioned above in HPI. PHYSICAL EXAMINATION Vital signs reviewed. Head: Normocephalic. Eyes: Sclerae nonicteric. Neck: Brisk carotid upstroke, elevated jugular venous distention. Lungs: Reduced air entry with diffuse wheezing in bilateral lung [place]. Heart: Regular rate and rhythm, heart sounds, no murmur or rub. Abdomen: Soft nontender, positive bowel sounds. Extremities: 1-2+ pitting edema bilateral lower extremity Neuro: Alert, oritented, no focal deficits. Detailed neuro exam was not performe d. ASSESSMENT Elevated troponin at 0.15 with flat pattern, likely type II STEMI from hypoxia, congestive heart failure. Acute hypoxic respiratory failure Acute CHF exacerbation, EF unknown Acute COPD exacerbation Tobacco smoker 2 packs/day Type 2 diabetes on insulin PLAN Start Lasix 40 mg IV twice daily Continue aspirin 81 mg, atorvastatin 40 mg No need of IV heparin at this time Obtain an echocardiogram Agree with monitoring in ICU overnight and placing on BiPAP support COPD and other comorbidity management as per ICU team and medical team Based on echo findings and once patient gets better from CHF and COPD standpoint, patient should get evaluated for invasive or noninvasive ischemic e valuation. Franky Miller MD, FACC, RPVI Thank you for allowing [facility] to participate in this patient's care. Feel free to reach out in case of any followup questions. Past Medical History Past Medical History: COPD, CVA/TIA, Diabetes Mellitus, GERD/Reflux, Hyperlipidemia, Hypertension Additional Past Medical History / Comment(s): IDDM, cystic breasts, diabetic ulcer on left great toe: healing History of Any Multi-Drug Resistant Organisms: None Reported Past Surgical History: Back Surgery, Breast Surgery, Cholecystectomy, Orthopedic Surgery, Tubal Ligation Additional Past Surgical History / Comment(s): Bilateral breast with cysts removed-benign, thoracic spine surgery, bilateral cataract removal with lens implants, vocal cord polyps removed-benign, colonoscopy with polyps removed- benign, bilateral feet bunionectomies. Past Anesthesia/Blood Transfusion Reactions: No Reported Reaction Additional Past Anesthesia/Blood Transfusion Reaction / Comment(s): Pt states she is clausterphobic Past Psychological History: Bipolar Additional Psychological History / Comment(s): Pt states Effexor works well for her bipolar. Lives alone with 2 dogs. She is independent. She drives. She has clausterphobia. Smoking Status: Current every day smoker Past Alcohol Use History: None Reported Additional Past Alcohol Use History / Comment(s): Pt states she started smoking at age 11 1/2 yrs and is a 2 ppd smoker. Past Drug Use History: None Reported - Past Family History Mother Family Medical History: Cancer, Congestive Heart Failure (CHF) Additional Family Medical History / Comment(s): Mother at age 89 yrs. Father Family Medical History: No Reported History Additional Family Medical History / Comment(s): Father was almost 80 when he . Medications and Allergies Home Medications Medication Instructions Recorded Confirmed Type Omeprazole 20 mg PO BID 02/13/16 12/18/23 History Venlafaxine HCl ER [Effexor XR] 150 mg PO BID 02/13/16 12/18/23 History Atorvastatin [Lipitor] 40 mg PO HS #30 tab 02/16/16 12/18/23 Rx Albuterol Inhaler [Ventolin Hfa 1 - 2 puff INHALATION RT-Q6H PRN 12/18/23 12/18/23 History Inhaler] Insulin Regular, Human [NovoLIN R] 30 unit SQ DIRECTED 12/18/23 12/18/23 History Lisinopril-Hctz 10-12.5 mg 1 tab PO DIRECTED 12/18/23 12/18/23 History [Zestoretic 10-12.5] Salmeterol 50 mcg [Serevent Diskus] 1 puff INHALATION RT-BID 12/18/23 12/18/23 History Umeclidinium Brm/Vilanterol Tr 1 puff INHALATION RT-DAILY 12/18/23 12/18/23 History [Anoro Ellipta 62.5-25 Mcg INH] metFORMIN HCL 500 mg PO BID 12/18/23 12/18/23 History Allergies Allergy/AdvReac Type Severity Reaction Status Date / Time No Known Allergies Allergy Verified 12/18/23 11:47 Physical Exam Vitals: Vital Signs Temp Pulse Resp BP Pulse Ox FiO2 12/18/23 14:29 40 12/18/23 12:29 98.3 F 98 24 157/80 97 12/18/23 10:15 97.6 F 105 H 24 164/86 98 12/18/23 09:29 108 H 12/18/23 09:20 99 12/18/23 09:19 99 12/18/23 09:09 118 H 40 12/18/23 09:07 40 12/18/23 09:00 94.6 F L 120 H 24 162/130 99 Intake and Output 12/17/23 12/18/23 12/18/23 22:59 06:59 14:59 Other: Weight 93.7 kg Results 12/18/23 09:11 12/18/23 09:11 Cardiac Enzymes 12/18/23 12/18/23 12/18/23 Range/Units 09:11 09:11 12:14 AST 32 (14-36) U/L Troponin I 0.153 H* 0.151 H* (0.000-0.034) ng/mL Coagulation 12/18/23 Range/Units 09:11 PT 11.2 (10.0-12.5) sec APTT 21.7 L (22.0-30.0) sec CBC 12/18/23 Range/Units 09:11 WBC 10.4 (3.8-10.6) k/uL RBC 4.42 (3.80-5.40) m/uL Hgb 13.4 (11.4-16.0) gm/dL Hct 41.7 (34.0-46.0) % Plt Count 352 (150-450) k/uL Comprehensive Metabolic Panel 12/18/23 Range/Units 09:11 Sodium 137 (137-145) mmol/L Potassium 4.8 (3.5-5.1) mmol/L Chloride 105 (98-107) mmol/L Carbon Dioxide 19 L (22-30) mmol/L BUN 21 H (7-17) mg/dL Creatinine 0.82 (0.52-1.04) mg/dL Glucose 272 H (74-99) mg/dL Calcium 9.0 (8.4-10.2) mg/dL AST 32 (14-36) U/L ALT 23 (4-34) U/L Alkaline Phosphatase 105 (38-126) U/L Total Protein 7.2 (6.3-8.2) g/dL Albumin 4.1 (3.5-5.0) g/dL Current Medications Generic Name Dose Route Start Last Admin Trade Name Freq PRN Reason Stop Dose Admin Acetaminophen 650 mg 12/18/23 10:46 Acetaminophen Tab 325 Mg Tab PO Q4HR PRN Mild Pain or Fever > 100.5 Albuterol/Ipratropium 3 ml 12/18/23 12:00 12/18/23 11:23 Ipratropium-Albuterol 3 Ml Neb INHALATION Not Given RT-QID ZIGGY Albuterol/Ipratropium 3 ml 12/18/23 10:46 Ipratropium-Albuterol 3 Ml Neb INHALATION RT-Q2H PRN Shortness Of Breath Or Wheezing Atorvastatin Calcium 40 mg 12/18/23 21:00 Atorvastatin 40 Mg Tab PO HS ZIGGY Bisacodyl 5 mg 12/18/23 12:35 Bisacodyl 5 Mg Tablet.Dr PO DAILY PRN Constipation Dextrose/Water 25 ml 12/18/23 12:47 Dextrose 50% Syringe 50 Ml IVP PER PROTOCOL PRN Hypoglycemia Protocol Dextrose/Water 50 ml 12/18/23 12:47 Dextrose 50% Syringe 50 Ml IVP PER PROTOCOL PRN Hypoglycemia Protocol Enoxaparin Sodium 40 mg 12/19/23 09:00 Enoxaparin 40 Mg/0.4 Ml Syringe SQ DAILY ZIGGY Formoterol Fumarate 20 mcg 12/18/23 20:00 Formoterol Fumarate 20 Mcg/2 Ml Nebu INHALATION RT-BID ZIGGY Furosemide 40 mg 12/18/23 21:00 Furosemide 10 Mg/Ml 4 Ml Vial IV Q12HR ZIGGY Lisinopril/HCTZ 1 each 12/19/23 09:00 Lisinopril-Hctz 10-12.5 Mg 1 Each Tab PO DIRECTED ZIGGY Azithromycin 500 mg/ Sodium 250 mls @ 250 mls/hr 12/18/23 10:45 12/18/23 12:13 Chloride IVPB 12/20/23 09:59 250 mls/hr DAILY ZIGGY Administration Protocol Insulin Aspart 0 unit 12/18/23 17:30 Insulin Aspart (Novolog) 100 Unit/Ml Vial SQ ACHS ZIGGY Protocol Lorazepam 0.5 mg 12/18/23 12:35 Lorazepam 2 Mg/Ml Inj IV Q6HR PRN Anxiety Melatonin 3 mg 12/18/23 12:35 Melatonin 3 Mg Tablet PO HS PRN Insomnia Methylprednisolone Sodium Succinate 60 mg 12/18/23 18:00 Methylprednisolone Sod Succi 125 Mg/2 Ml Vial IV Q6HR ZIGGY Naloxone HCl 0.2 mg 12/18/23 10:46 Naloxone 0.4 Mg/Ml 1 Ml Vial IVP Q2M PRN Opioid Reversal Nicotine 1 patch 12/19/23 09:00 Nicotine 21mg/24hr Patch TRANSDERM DAILY ZIGGY Nicotine Polacrilex 2 mg 12/18/23 12:35 Nicotine Gum (Polacrilex) 2 Mg Gum BUCCAL Q2HR PRN Nicotine Cravings Ondansetron HCl 4 mg 12/18/23 12:35 Ondansetron 4 Mg/2 Ml Vial IVP Q8HR PRN Nausea And Vomiting Pantoprazole Sodium 40 mg 12/18/23 17:30 Pantoprazole 40 Mg Tablet PO AC-BID ZIGGY Venlafaxine HCl 150 mg 12/18/23 21:00 Venlafaxine Hcl Er 150 Mg Cap PO BID ZIGGY Intake and Output 12/17/23 12/18/23 12/18/23 22:59 06:59 14:59 Other: Weight 93.7 kg Patient Weight 12/19/23 06:59 Weight 93.7 kg 12/18/23 09:11 12/18/23 09:11
--- NOTE | 2023-12-18 15:30 | P.CNPUL ---
History of Present Illness Consult date: 12/18/23 Reason for consult: dyspnea, COPD History of present illness: This is a 78-year-old female patient who presented emergency with significant respiratory distress attributed to COPD exacerbation. The patient is known to have COPD and she smokes around 1 pack of cigarettes a day. She is oxygen dependent. She uses albuterol rescue inhaler and nebulized updrafts on an outpatient basis. She also uses an oral Ellipta as maintenance. She is obese with a body mass 35.5 and the patient also has diabetes mellitus, previous history of CVA without any residual deficits, and hypertension. The patient was initially evaluated in the ED. Following that, the patient was moved to the intensive care unit and the patient is currently on a BiPAP pressure of 12/6 with an FiO2 of 40%. She is urinating a tidal volume of around 300. She is actively bronchospastic and wheezy. No angina. No palpitation. Is arousable. No hemodynamic instability. No chest pain. Chest x-ray shows increased pulm vascular markings consistent with CHF. She was given a dose of Lasix in the emergency with significant urine output and the patient will need a Feng catheter insertion. Troponins are 0.1 x 2 respectively. proBNP level is 3440. The viral screen was negative for COVID-19, RSV and influenza. The white cell count of 10.4 with a hemoglobin 13.4, normal coagulation profile, BUN is 21 with a creatinine of 0.8 and a sodium levels of 137. EKG showed a sinus tachycardia with some nonspecific T wave abnormalities and frequent premature ventricular c omplexes. Patient is arousable. He is able to tolerate the BiPAP without any major difficulties for now. Review of Systems Constitutional: Reports weight gain Eyes: denies as per HPI, denies blurred vision, denies bulging eye, denies decreased vision, denies diplopia, denies discharge, denies dry eye, denies irritation, denies itching, denies pain, denies photophobia, denies loss of peripheral vision, denies loss of vision, denies tunnel vision/blind spots Ears: deny: decreased hearing, ear discharge, earache, tinnitus Ears, nose, mouth and throat: Reports as per HPI Breasts: absent: as per HPI, change in shape, gynecomastia, masses, nipple discharge, pain, skin changes, swelling Cardiovascular: Reports decreased exercise tolerance, Reports dyspnea on exertion, Reports shortness of breath Respiratory: Reports congestion, Reports dyspnea, Reports home oxygen, Reports wheezing Gastrointestinal: Reports as per HPI Genitourinary: Reports as per HPI Menstruation: Reports as per HPI Musculoskeletal: Reports as per HPI Musculoskeletal: absent: ankle pain, ankle stiffness, ankle swelling, as per HPI, elbow pain, elbow stiffness, elbow swelling, foot pain, foot stiffness, f oot swelling, hand pain, hand stiffness, hand swelling, hip pain, hip stiffness, hip swelling, knee pain, knee stiffness, knee swelling, shoulder pain, shoulder stiffness, shoulder swelling, wrist pain, wrist stiffness, wrist swelling Integumentary: Reports as per HPI Neurological: Reports as per HPI Psychiatric: Reports as per HPI Endocrine: Reports as per HPI Hematologic/Lymphatic: Reports as per HPI Allergic/Immunologic: Reports as per HPI Past Medical History Past Medical History: Heart Failure, COPD, Diabetes Mellitus, GERD/Reflux Additional Past Medical History / Comment(s): IDDM, cystic breasts. History of Any Multi-Drug Resistant Organisms: None Reported Past Surgical History: Back Surgery, Breast Surgery, Cholecystectomy, Orthopedic Surgery, Tubal Ligation Additional Past Surgical History / Comment(s): Bilateral breast with cysts removed-benign, thoracic spine surgery, bilateral cataract removal with lens implants, vocal cord polyps removed-benign, colonoscopy with polyps removed-benign, bilateral feet bunionectomies. Past Anesthesia/Blood Transfusion Reactions: No Reported Reaction Additional Past Anesthesia/Blood Transfusion Reaction / Comment(s): Pt states she is clausterphobic Past Psychological History: Bipolar Smoking Status: Current every day smoker Past Alcohol Use History: None Reported Past Drug Use History: None Reported - Past Family History Mother Family Medical History: Cancer, Congestive Heart Failure (CHF) Additional Family Medical History / Comment(s): Mother at age 89 yrs. Father Family Medical History: No Reported History Additional Family Medical History / Comment(s): Father was almost 80 when he . Medications and Allergies Home Medications Medication Instructions Recorded Confirmed Type RX: Omeprazole 20 mg PO BID 02/13/16 12/18/23 History RX: Venlafaxine HCl ER [Effexor XR] 150 mg PO BID 02/13/16 12/18/23 History RX: Atorvastatin [Lipitor] 40 mg PO HS #30 tab 02/16/16 12/18/23 Rx Albuterol Inhaler [Ventolin Hfa 1 - 2 puff INHALATION RT-Q6H PRN 12/18/23 12/18/23 History Inhaler] Insulin Regular, Human [NovoLIN R] 30 unit SQ DIRECTED 12/18/23 12/18/23 History RX: Lisinopril-Hctz 10-12.5 mg 1 tab PO DIRECTED 12/18/23 12/18/23 History [Zestoretic 10-12.5] RX: metFORMIN HCL 500 mg PO BID 12/18/23 12/18/23 History Salmeterol 50 mcg [Serevent Diskus] 1 puff INHALATION RT-BID 12/18/23 12/18/23 History Umeclidinium Brm/Vilanterol Tr 1 puff INHALATION RT-DAILY 12/18/23 12/18/23 History [Anoro Ellipta 62.5-25 Mcg INH] Allergies Allergy/AdvReac Type Severity Reaction Status Date / Time No Known Allergies Allergy Verified 12/18/23 11:47 Physical Exam Vitals: Vital Signs Temp Pulse Resp BP Pulse Ox FiO2 12/18/23 10:15 97.6 F 105 H 24 164/86 98 12/18/23 09:29 108 H 12/18/23 09:20 99 12/18/23 09:19 99 12/18/23 09:09 118 H 40 12/18/23 09:07 40 12/18/23 09:00 94.6 F L 120 H 24 162/130 99 Intake and Output 12/17/23 12/18/23 12/18/23 22:59 06:59 14:59 Other: Weight 94.801 kg Calm and comfortable tolerating the BiPAP at a pressure of 12/6 with an FiO2 of 40%, breathing is still labored and the patient remains in mild respiratory distress even while on the BiPAP. She remains tachypneic. Head exam was generally normal. There was no scleral icterus or corneal arcus. Mucous membranes were moist. Neck was supple and without jugular venous distension, thyromegaly, or carotid bruits. Carotids were easily palpable bilaterally. There was no adenopathy. Lung sounds are diminished bilaterally and the patient has diffuse expiratory wheezes throughout the lung sevilla. Cardiac exam revealed the PMI to be normally situated and sized. The rhythm was regular and no extrasystoles were noted during several minutes of auscultation. The first and second heart sounds were normal and physiologic splitting of the second heart sound was noted. There were no murmurs, rubs, clicks, or gallops. Abdominal exam revealed normal bowel sounds. The abdomen was soft, non-tender, a nd without masses, organomegaly, or appreciable enlargement of the abdominal aorta. Examination of the extremities revealed easily palpable radial, femoral and pedal pulses. There was no cyanosis, clubbing or edema. Examination of the skin revealed no evidence of significant rashes, suspicious appearing nevi or other concerning lesions. Neurologically, the patient is awake and alert and the patient does not have any focal neurological deficit. Cranial nerves are essentially intact. Results - Laboratory Findings CBC and BMP: 12/18/23 09:11 12/18/23 09:11 PT/INR, D-dimer PT 11.2 sec (10.0-12.5) 12/18/23 09:11 INR 1.0 (<1.2) 12/18/23 09:11 Abnormal lab findings: Abnormal Labs 12/18/23 12/18/23 12/18/23 09:11 09:11 09:11 Neutrophils # 8.2 H APTT 21.7 L Carbon Dioxide 19 L BUN 21 H Glucose 272 H POC Glucose (mg/dL) Magnesium 1.4 L Troponin I 12/18/23 12/18/23 09:11 10:08 Neutrophils # APTT Carbon Dioxide BUN Glucose POC Glucose (mg/dL) 280 H Magnesium Troponin I 0.153 H* - Diagnostic Findings Chest x-ray: image reviewed Assessment and Plan Plan: Acute hypoxic respiratory failure secondary to COPD exacerbation. The patient is currently on a BiPAP pressure of 12/6 with an FiO2 of 40%. Actively bronchospastic and wheezy and her presentation is essentially consistent with COPD exacerbation with a component of CHF Acuity COPD exacerbation Acute CHF exacerbation, based on the physical ejection fraction is unknown. proBNP level is elevated and the patient's chest x-ray showing increased bilateral pulmonary vascular markings consistent with CHF. She was given diuretics with Lasix. Troponin leak, likely type II ischemia without any acute ST segment elevation. EKG findings are nonspecific and the patient has normal sinus rhythm with frequent PVCs Obesity with a BMI of 35.5 Advanced COPD with chronic hypoxic respiratory failure Chronic smoker Diabetes mellitus type 2 Previous history of CVA without any significant neurological deficits Hypertension Plan I had a nice discussion with the daughter at the bedside. They made it clear to me that the patient wanted a DNR/DNI CODE STATUS. She never want to get intubated and on the ventilator she was not respiratory failure. As such, she will be changed to no CODE STATUS. Meanwhile, we will continue or support with BiPAP at the same pressure setting. Will put the patient on Lasix 40 mg IV every 12 hours. Continue DuoNeb updrafts. Add Perforomist and Pulmicort nebulized treatments twice a day. Continue IV Solu-Medrol 60 mg every 6 hours. Echocardiogram in a.m. to evaluate LV function. Lovenox for DVT prophylaxis. Insulin sliding scale coverage for blood sugar control and insulin drip if needed. Will continue to follow. For the time being, the patient is able to tolerate the BiPAP without any major difficulties. Will use Ativan as needed. Nicotine patches. Condition is critical. High risk for further respiratory compromise based on the above-mentioned presentation. Condition is obviously critical. Cardiology consultation will be obtained. Time with Patient: Greater than 30
[2023-12-18] MEDS: ASPIRIN 81 MG PO STA (15:38)
[2023-12-18 15:42] LABS: ABG HCO3 26 mmol/L (21-25); ABG Oxygen Saturation 98.1 % (94-97); ABG PCO2 53 mmHg (35-45); ABG PO2 114 mmHg (83-108); ABG TCO2 27 mmol/L (19-24); Allen Test Performed? Yes
[2023-12-18 16:34] LABS: Glucose,Whole Blood 260 mg/dL (70-110)
[2023-12-18] MEDS: HEPARIN SODIUM 1,000 UN/ML (10ML VL) IV ONE (16:47)
[2023-12-18] MEDS: HEPARIN SOD,PORK IN 0.45% NACL 25,000 UNIT in 0.45% NACL 1 250ML.BAG IV SCH (16:49)
[2023-12-18] MEDS: PANTOPRAZOLE 40 MG TABLET PO SCH (16:53)
[2023-12-18] MEDS: INSULIN ASPART (NovoLOG) 100 UNIT/ML VIAL SQ SCH (16:53)
[2023-12-18] MEDS: methylPREDNISolone SOD SUCCI 125 MG/2 ML VIAL IV SCH (17:01)
[2023-12-18] MEDS: LORazepam 2 MG/ML INJ IV PRN (17:07)
[2023-12-18] MEDS ORDERED: Salmeterol 50 mcg INHALER INHALATION SCH (20:00)
[2023-12-18] MEDS ORDERED: FORMOTEROL FUMARATE 20 MCG/2 ML NEBU INHALATION SCH (20:00)
[2023-12-18 20:04] LABS: Glucose,Whole Blood 251 mg/dL (70-110)
[2023-12-18] MEDS: FUROSEMIDE 10 MG/ML 4 ML VIAL IV SCH (20:14)
[2023-12-18] MEDS: ATORVASTATIN 40 MG TAB PO SCH (20:15)
[2023-12-18] MEDS: VENLAFAXINE HCL ER 150 MG CAP PO SCH (20:15)
[2023-12-18] MEDS: BUDESONIDE 0.5 MG/2 ML NEBU INHALATION SCH (20:16)
[2023-12-18] MEDS: FORMOTEROL FUMARATE 20 MCG/2 ML NEBU INHALATION SCH (20:16)
[2023-12-18] MEDS: HEPARIN SODIUM 1,000 UN/ML (10ML VL) IV PRN (23:44)
[2023-12-19 05:44] LABS: HCT 36.1 % (34.0-46.0); HGB 11.7 gm/dL (11.4-16.0); Hypochromasia Slight; MCH 30.7 pg (25.0-35.0); MCHC 32.5 g/dL (31.0-37.0); MCV 94.6 fL (80.0-100.0); Mean Platelet Volume 7.2; Platelet Count 286 k/uL (150-450); RBC 3.81 m/uL (3.80-5.40); RDW 13.3 % (11.5-15.5); WBC 5.4 k/uL (3.8-10.6)
[2023-12-19 05:46] LABS: INR 1.1 (<1.2); Prothrombin Time 11.9 sec (10.0-12.5)
[2023-12-19 06:01] LABS: ALT 20 U/L (4-34); AST 26 U/L (14-36); African American GFR (CKD) 67 (>60 ml/min/1.73 sqM); Albumin 3.9 g/dL (3.5-5.0); Alkaline Phosphatase 79 U/L (38-126); Anion Gap 11 mmol/L; Blood Urea Nitrogen 33 mg/dL (7-17); Calcium 8.7 mg/dL (8.4-10.2); Carbon Dioxide 23 mmol/L (22-30); Chloride 103 mmol/L (98-107); Glucose 294 mg/dL (74-99); Magnesium 1.4 mg/dL (1.6-2.3); Non-African American GFR(CKD) 58 (>60 ml/min/1.73 sqM); Phosphorus 5.2 mg/dL (2.5-4.5); Potassium 4.6 mmol/L (3.5-5.1); Sodium 137 mmol/L (137-145); Total Bilirubin 0.4 mg/dL (0.2-1.3); Total Protein 6.7 g/dL (6.3-8.2)
[2023-12-19] MEDS ORDERED: Magnesium Replacement Protocol 1 EACH MISC MISCELLANE PRN (06:11)
[2023-12-19] MEDS: MAGNESIUM SULFATE-D5W PMX 1 GM in DEXTROSE/WATER 1 100ML.BAG IVPB SCH (06:29)
[2023-12-19 06:37] LABS: Glucose,Whole Blood 352 mg/dL (70-110)
--- NOTE | 2023-12-19 08:26 | XR ---
EXAMINATION TYPE: XR chest 1V portable DATE OF EXAM: 12/19/2023 COMPARISON: 12/18/2023 INDICATION: Dyspnea TECHNIQUE: Single frontal view of the chest is obtained. FINDINGS: The heart size is normal. The pulmonary vasculature is normal. The lungs are clear. IMPRESSION: 1. No acute pulmonary process.
[2023-12-19] MEDS: ASPIRIN 81 MG PO SCH (08:27)
[2023-12-19] MEDS: INSULIN DETEMIR (LEVEMIR) 100 UNIT/ML SYR SQ SCH (08:27)
[2023-12-19] MEDS: SACUBITRIL/VALSARTAN 24 MG-26 MG TABLET PO SCH (08:32)
[2023-12-19] MEDS: NICOTINE 21MG/24HR PATCH TRANSDERM SCH (08:32)
[2023-12-19] MEDS ORDERED: ENOXAPARIN 40 MG/0.4 ML SYRINGE SQ SCH (09:00)
[2023-12-19] MEDS ORDERED: LISINOPRIL-HCTZ 10-12.5 MG 1 EACH TAB PO SCH (09:00)
--- NOTE | 2023-12-19 09:04 | CONS ---
CONSULTATION HISTORY OF PRESENT ILLNESS: Libby is a 78-year-old lady, who has history of hypertension, diabetes, dyslipidemia, and prior CVA, but she is admitted to hospital with CHF exacerbation and had mild troponin elevation thought to be secondary to type 2 myocardial infarction. This morning, she is comfortable at rest and free of symptoms. She is on 3 L of nasal cannula, saturating at 99%. PHYSICAL EXAMINATION: VITAL SIGNS: Stable. NECK: There is no jugular venous distention. Carotid upstroke is normal. There is no bruit. CHEST: Reveals good air entry bilaterally. HEART: Reveals first and second heart sounds. No gallop. Has a systolic murmur at the apex. ABDOMEN: Soft. EXTREMITIES: Revealed mild edema. Peripheral pulses are felt. LABORATORY DATA: Today show a hemoglobin of 11.7. Potassium is 4.6, creatinine is 0.9. CURRENT MEDICATIONS: Include; 1. Aspirin. 2. Lipitor. 3. Lasix. 4. Insulin. 5. Melatonin. ASSESSMENT AND PLAN: Acute onset congestive heart failure of undetermined etiology. Echo is pending at this time. I will continue the IV Lasix and I will obtain an echocardiogram. I will review the echo results once they are available. The patient was supposed to stop the IV heparin yesterday, not sure if this has been done or not. MMODL / IJN: [id number] /
[2023-12-19] MEDS: LORazepam 2 MG/ML INJ IV PRN (09:31)
[2023-12-19] MEDS: QUEtiapine 25 MG TAB PO SCH (10:10)
[2023-12-19 11:03] VITALS: BMI 35.9
[2023-12-19 11:25] LABS: Glucose,Whole Blood 361 mg/dL (70-110)
--- NOTE | 2023-12-19 12:24 | P.PN ---
Subjective Progress Note Date: 12/19/23 Principal diagnosis: Acute hypoxic respiratory failure secondary to acute COPD exacerbation and acute congestive heart failure, unknown ejection fraction This is a 78-year-old female patient who presented emergency with significant respiratory distress attributed to COPD exacerbation. The patient is known to have COPD and she smokes around 1 pack of cigarettes a day. She is oxygen dependent. She uses albuterol rescue inhaler and nebulized updrafts on an outpatient basis. She also uses an oral Ellipta as maintenance. She is obese with a body mass 35.5 and the patient also has diabetes mellitus, previous history of CVA without any residual deficits, and hypertension. The patient was initially evaluated in the ED. Following that, the patient was moved to the intensive care unit and the patient is currently on a BiPAP pressure of 12/6 with an FiO2 of 40%. She is urinating a tidal volume of around 300. She is actively bronchospastic and wheezy. No angina. No palpitation. Is arousable. No hemodynamic instability. No chest pain. Chest x-ray shows increased pulm vascular markings consistent with CHF. She was given a dose of Lasix in the emergency with significant urine output and the patient will need a Feng catheter insertion. Troponins are 0.1 x 2 respectively. proBNP level is 3440. The viral screen was negative for COVID-19, RSV and influenza. The white cell count of 10.4 with a hemoglobin 13.4, normal coagulation profile, BUN is 21 with a creatinine of 0.8 and a sodium levels of 137. EKG showed a sinus tachycardia with some nonspecific T wave abnormalities and frequent premature ventricular complexes. Patient is arousable. He is able to tolerate the BiPAP without any major difficulties for now. Patient was evaluated today on 12/19/2023, seen in the ICU, patient is on 3 L nasal cannula, continues to have intermittent cough and wheezing, patient also has significant anxiety, intermittently has been on BiPAP 16/6/40%. Remains on Lasix at 40 mg IV push every 12 hours. Patient seems to be anxious, on physical examination she has minimal wheezing on forced expiratory maneuver. Patient is on lorazepam which has been increased, she is on steroids, she is also on bronchodilators, and diuretics. Clinically I believe the patient is improving, however she seems to be again a bit more anxious than expected. Patient is on Effexor she is also on Ativan, and I added Seroquel at 25 mg p.o. twice daily. Her labs were reviewed CBC is relatively normal basic metabolic profile is normal renal profile is normal Objective - Vital Signs Vital signs: Vital Signs Temp 97.6 F 12/19/23 12:00 Pulse 101 H 12/19/23 12:00 Resp 18 12/19/23 12:00 BP 126/73 12/19/23 12:00 Pulse Ox 93 L 12/19/23 12:00 FiO2 40 12/19/23 08:00 Intake & Output 12/18/23 12/19/23 12/19/23 18:59 06:59 18:59 Intake Total 119.347 132.538 Output Total 1235 803 835 Balance -1235 -683.653 -702.462 Weight 93.7 kg 95.1 kg 95.1 kg Intake: IV 20 KVO 20 Intake, IV Titration 69.347 112.538 Amount Heparin Sod,Pork in 0.45% 69.347 112.538 NaCl 25,000 unit In 0.45 % NaCl 1 250ml.bag @ 10.7 UNITS/KG/HR 10.026 mls/ hr IV .[facility] Rx#: [id number] Oral 50 Output: Urine 1235 803 835 Other: Voiding Method Indwelling Catheter Indwelling Catheter Indwelling Catheter - Exam General: The patient is awake and alert, anxious, on 3 L nasal cannula Skin: Skin is warm and dry and no rashes or lesions are noted. Eye: Pupils are equal, round and reactive to light, extra-ocular movements are intact; there is normal conjunctiva bilaterally. Ears, nose, mouth and throat: There are moist mucous membranes and no oral lesions. Neck: The neck is supple, there is no tenderness or JVD. Cardiovascular: There is a regular rate and rhythm. No murmur, rub or gallop is appreciated. Respiratory: Wheezing is noted on forced expiratory maneuver. Bilaterally. Gastrointestinal: Soft, non-distended, non-tender abdomen without masses or organomegaly noted. There is no rebound or guarding present. Bowel sounds are unremarkable. Back: There is no tenderness to palpation in the midline. There is no obvious deformity. Musculoskeletal: Normal ROM, no tenderness, There is no pedal edema. There is no calf tenderness or swelling. No cords were appreciated. Neurological: CN II-XII intact, Cranial nerves III through XII are intact. There are no obvious motor or sensory deficits. Coordination appears grossly intact. Speech is normal. Psychiatric: Anxious, normal affect, and normal mental status examination otherwise. - Labs CBC & Chem 7: 12/19/23 04:28 12/19/23 04:28 Labs: Abnormal Lab Results - Last 24 Hours (Table) 12/18/23 12/18/23 12/18/23 Range/Units 12:14 13:11 14:41 APTT (22.0-30.0) sec ABG pH (7.35-7.45) ABG pCO2 (35-45) mmHg ABG pO2 (83-108) mmHg ABG HCO3 (21-25) mmol/L ABG Total CO2 (19-24) mmol/L ABG O2 Saturation (94-97) % BUN (7-17) mg/dL Glucose (74-99) mg/dL POC Glucose (mg/dL) 264 H (70-110) mg/dL Hemoglobin A1c (<=6.0) % Phosphorus (2.5-4.5) mg/dL Magnesium (1.6-2.3) mg/dL Troponin I 0.151 H* 0.157 H* (0.000-0.034) ng/mL 12/18/23 12/18/23 12/18/23 Range/Units 15:35 16:33 20:02 APTT (22.0-30.0) sec ABG pH 7.30 L (7.35-7.45) ABG pCO2 53 H (35-45) mmHg ABG pO2 114 H (83-108) mmHg ABG HCO3 26 H (21-25) mmol/L ABG Total CO2 27 H (19-24) mmol/L ABG O2 Saturation 98.1 H (94-97) % BUN (7-17) mg/dL Glucose (74-99) mg/dL POC Glucose (mg/dL) 260 H 251 H (70-110) mg/dL Hemoglobin A1c (<=6.0) % Phosphorus (2.5-4.5) mg/dL Magnesium (1.6-2.3) mg/dL Troponin I (0.000-0.034) ng/mL 12/18/23 12/19/23 12/19/23 Range/Units 23:03 04:28 04:28 APTT 34.2 H (22.0-30.0) sec ABG pH (7.35-7.45) ABG pCO2 (35-45) mmHg ABG pO2 (83-108) mmHg ABG HCO3 (21-25) mmol/L ABG Total CO2 (19-24) mmol/L ABG O2 Saturation (94-97) % BUN 33 H (7-17) mg/dL Glucose 294 H (74-99) mg/dL POC Glucose (mg/dL) (70-110) mg/dL Hemoglobin A1c 7.6 H (<=6.0) % Phosphorus 5.2 H (2.5-4.5) mg/dL Magnesium 1.4 L (1.6-2.3) mg/dL Troponin I (0.000-0.034) ng/mL 12/19/23 12/19/23 12/19/23 Range/Units 04:28 06:35 11:23 APTT 64.2 H (22.0-30.0) sec ABG pH (7.35-7.45) ABG pCO2 (35-45) mmHg ABG pO2 (83-108) mmHg ABG HCO3 (21-25) mmol/L ABG Total CO2 (19-24) mmol/L ABG O2 Saturation (94-97) % BUN (7-17) mg/dL Glucose (74-99) mg/dL POC Glucose (mg/dL) 352 H 361 H (70-110) mg/dL Hemoglobin A1c (<=6.0) % Phosphorus (2.5-4.5) mg/dL Magnesium (1.6-2.3) mg/dL Troponin I (0.000-0.034) ng/mL Assessment and Plan Assessment: Impression: Acute on chronic hypoxic respiratory failure secondary to COPD exacerbation and congestive heart failure. As noted below Acute exacerbation of COPD Acute congestive heart failure, unknown ejection fraction, echocardiogram is pending Generalized anxiety disorder Bipolar disorder Obesity with BMI of 35.5 Chronic hypoxic respiratory failure on home O2 Type 2 diabetes without complications Remote history of CVA without neurological deficit Benign essential hypertension Recommendations: Continue bronchodilators, DuoNeb, Pulmicort, Perforomist, Continue steroids Continue diuretics Check ejection fraction/echocardiogram Use BiPAP as needed if necessary. For her anxiety continue Ativan, nicotine patches, and added Seroquel 25 twice daily. Will continue to follow. Time with Patient: Less than 30
--- NOTE | 2023-12-19 13:05 | CA ---
Transthoracic Echo Report Name: Libby Castelan Age: 78 Gender: F : 1945 Exam Date: 12/19/2023 10:46 Exam Location: [facility] Ht (in): 67 Wt (lb): 209 Ordering Physician: Cindy Gregory DO Attending/Referring Phys: [id number], [employer] Alex Lyly RDCS Procedure CPT: Indications: chf Cardiac Hx: Technical Quality: Technically difficult study Contrast 1: Definity Total Dose (mL): 2 Contrast 2: Total Dose (mL): MEASUREMENTS (Male / Female) Normal Values 2D ECHO LV Diastolic Diameter PLAX 5.4 cm 4.2 - 5.9 / 3.9 - 5.3 cm LV Systolic Diameter PLAX 4.6 cm IVS Diastolic Thickness 1.2 cm 0.6 - 1.0 / 0.6 - 0.9 cm LVPW Diastolic Thickness 1.0 cm 0.6 - 1.0 / 0.6 - 0.9 cm LV Relative Wall Thickness 0.4 LVOT Diameter 2.0 cm Aortic Root Diameter 2.5 cm LA Systolic Diameter LX 2.2 cm 3.0 - 4.0 / 2.7 - 3.8 cm LA Volume 41.8 cm??? 18 - 58 / 22 - 52 cm??? LA Volume Index 19.4 cm???/m??? 16 - 28 cm???/m??? DOPPLER AV Peak Velocity 150.6 cm/s AV Peak Gradient 9.1 mmHg AV Mean Velocity 114.8 cm/s AV Mean Gradient 5.8 mmHg AV Velocity Time Integral 28.6 cm LVOT Peak Velocity 88.8 cm/s LVOT Peak Gradient 3.2 mmHg LVOT Velocity Time Integral 17.6 cm LVOT Stroke Volume 54.9 cm??? LVOT Stroke Volume Index 26.6 ml/m??? LVOT Cardiac Index 2500.3 cm???/min???m??? AV Area Cont Eq vti 1.9 cm??? AV Area Cont Eq pk 1.8 cm??? MV Peak Velocity 142.6 cm/s MV Peak Gradient 8.1 mmHg MV Mean Velocity 75.1 cm/s MV Mean Gradient 2.9 mmHg MV Velocity Time Integral 39.2 cm MR Peak Velocity 336.2 cm/s MR Peak Gradient 45.2 mmHg Mitral E Point Velocity 96.7 cm/s Mitral A Point Velocity 99.8 cm/s Mitral E to A Ratio 1.0 MV Deceleration Time 291.7 ms TR Peak Velocity 123.2 cm/s TR Peak Gradient 6.1 mmHg Right Ventricular Systolic Press 11.1 mmHg PV Peak Velocity 133.6 cm/s PV Peak Gradient 7.1 mmHg FINDINGS Left Ventricle Normal LV size and wall thickness. Left ventricular ejection fraction is estimated at 30 %. Right Ventricle Normal right ventricular size. Right Atrium Normal right atrial size. Left Atrium Normal left atrial size. Mitral Valve Structurally normal mitral valve. Mild MR. Aortic Valve Aortic valve not well visualized. No aortic valve stenosis or regurgitation. Tricuspid Valve Tricuspid valve not well visualized. Trace TR. Pulmonic Valve Pulmonic valve not well visualized. No pulmonic regurgitation. Pericardium Not visualized well. Grossly unremarkable. Aorta Normal size aortic root. CONCLUSIONS Left ventricular ejection fraction 30% Mild mitral regurgitation Trace tricuspid regurgitation RVSP 11 Previewed by: Dr. Cooper Boyd DO (Electronically Signed) Final Date: 19 December 2023 13:05
[2023-12-19 16:37] LABS: Glucose,Whole Blood 305 mg/dL (70-110)
[2023-12-19] MEDS: INSULIN ASPART (NovoLOG) 100 UNIT/ML VIAL SQ SCH (16:51)
[2023-12-19] MEDS: HEPARIN SODIUM,PORCINE 5,000 UNIT/ML 1 ML VIAL SQ SCH (16:53)
[2023-12-19 20:03] LABS: Glucose,Whole Blood 300 mg/dL (70-110)
[2023-12-20] MEDS: IPRATROPIUM-ALBUTEROL 3 ML NEB INHALATION PRN (00:08)
[2023-12-20 04:09] LABS: HCT 36.1 % (34.0-46.0); HGB 11.8 gm/dL (11.4-16.0); MCH 30.3 pg (25.0-35.0); MCHC 32.5 g/dL (31.0-37.0); MCV 93.1 fL (80.0-100.0); Mean Platelet Volume 7.4; Platelet Count 313 k/uL (150-450); RBC 3.88 m/uL (3.80-5.40); RDW 13.4 % (11.5-15.5); WBC 9.2 k/uL (3.8-10.6)
[2023-12-20 04:25] LABS: African American GFR (CKD) 76 (>60 ml/min/1.73 sqM); Anion Gap 4 mmol/L; Blood Urea Nitrogen 40 mg/dL (7-17); Calcium 8.9 mg/dL (8.4-10.2); Carbon Dioxide 31 mmol/L (22-30); Chloride 103 mmol/L (98-107); Glucose 168 mg/dL (74-99); Magnesium 1.8 mg/dL (1.6-2.3); Non-African American GFR(CKD) 66 (>60 ml/min/1.73 sqM); Sodium 138 mmol/L (137-145)
[2023-12-20] MEDS: MAGNESIUM SULFATE-D5W PMX 1 GM in DEXTROSE/WATER 1 100ML.BAG IVPB ONE (05:34)
[2023-12-20 06:38] LABS: Glucose,Whole Blood 197 mg/dL (70-110)
[2023-12-20] MEDS ORDERED: VANCOMYCIN IV PER PHARMACY 1 EACH MISC MISCELLANE PRN (07:38)
--- NOTE | 2023-12-20 08:02 | XR ---
EXAMINATION TYPE: XR chest 1V portable DATE OF EXAM: 12/20/2023 COMPARISON: 12/19/2023 INDICATION: CHF exacerbation TECHNIQUE: Single frontal view of the chest is obtained. FINDINGS: The heart size is normal. The pulmonary vasculature is mild the prominent. The lungs are clear. IMPRESSION: 1. Mild volume overload may be slightly worsened from prior exam.
[2023-12-20] MEDS: predniSONE 10 MG TAB PO SCH (08:10)
[2023-12-20] MEDS: VANCOMYCIN 1,500 MG in SODIUM CHLORIDE 0.9% 500 ML 500 ML IVPB SCH (08:49)
[2023-12-20 11:18] LABS: Glucose,Whole Blood 198 mg/dL (70-110)
[2023-12-20] MEDS: guaiFENesin 600 MG TABLET.ER PO SCH (11:33)
--- NOTE | 2023-12-20 12:02 | P.PN ---
Subjective Progress Note Date: 12/20/23 Principal diagnosis: Acute hypoxic respiratory failure secondary to acute COPD exacerbation and acute systolic congestive heart failure, 30% ejection fraction This is a 78-year-old female patient who presented emergency with significant respiratory distress attributed to COPD exacerbation. The patient is known to have COPD and she smokes around 1 pack of cigarettes a day. She is oxygen dependent. She uses albuterol rescue inhaler and nebulized updrafts on an outpatient basis. She also uses an oral Ellipta as maintenance. She is obese with a body mass 35.5 and the patient also has diabetes mellitus, previous history of CVA without any residual deficits, and hypertension. The patient was initially evaluated in the ED. Following that, the patient was moved to the intensive care unit and the patient is currently on a BiPAP pressure of 12/6 with an FiO2 of 40%. She is urinating a tidal volume of around 300. She is actively bronchospastic and wheezy. No angina. No palpitation. Is arousable. No hemodynamic instability. No chest pain. Chest x-ray shows increased pulm vascular markings consistent with CHF. She was given a dose of Lasix in the emergency with significant urine output and the patient will need a Feng catheter insertion. Troponins are 0.1 x 2 respectively. proBNP level is 3440. The viral screen was negative for COVID-19, RSV and influenza. The white cell count of 10.4 with a hemoglobin 13.4, normal coagulation profile, BUN is 21 with a creatinine of 0.8 and a sodium levels of 137. EKG showed a sinus tachycardia with some nonspecific T wave abnormalities and frequent premature ventricular complexes. Patient is arousable. He is able to tolerate the BiPAP without any major difficulties for now. Patient was evaluated today on 12/19/2023, seen in the ICU, patient is on 3 L nasal cannula, continues to have intermittent cough and wheezing, patient also has significant anxiety, intermittently has been on BiPAP 16/6/40%. Remains on Lasix at 40 mg IV push every 12 hours. Patient seems to be anxious, on physical examination she has minimal wheezing on forced expiratory maneuver. Patient is on lorazepam which has been increased, she is on steroids, she is also on bronchodilators, and diuretics. Clinically I believe the patient is improving, however she seems to be again a bit more anxious than expected. Patient is on Effexor she is also on Ativan, and I added Seroquel at 25 mg p.o. twice daily. Her labs were reviewed CBC is relatively normal basic metabolic profile is normal renal profile is normal Patient was reevaluated today on 12/20/2023, patient remains in the ICU, doing well, she is on 3 L nasal cannula, and she has BiPAP at bedside. Echocardiogram showed impaired LV function with ejection fraction of 30%. Patient had positive blood cultures showing gram-positive cocci in clusters, final identification is pending, hence the patient was empirically started on vancomycin yesterday. More blood cultures were ordered. Clinically the patient is hemodynamically stable, and not in distress. Remains on bronchodilators for her COPD, and she remains on Lasix 40 mg IV push for her congestive heart failure. Chest x-ray this morning is showing significant improvement, compared to chest x-ray on admi ssion. WBC count today is 9.2 hemoglobin 11.8, basic metabolic profile is normal BUN is 40 creatinine 0.85 Objective - Vital Signs Vital signs: Vital Signs Temp 98.1 F 12/20/23 08:00 Pulse 92 12/20/23 11:48 Resp 22 12/20/23 09:00 BP 106/59 12/20/23 09:00 Pulse Ox 97 12/20/23 09:30 FiO2 40 12/20/23 06:00 Intake & Output 12/19/23 12/20/23 12/20/23 18:59 06:59 18:59 Intake Total 192.538 220 790 Output Total 1080 1190 615 Balance -887.462 -970 175 Weight 95.1 kg 90 kg Intake: IV 80 120 40 KVO 80 120 40 Intake, IV Titration 112.538 750 Amount Azithromycin 500 mg In 250 Sodium Chloride 0.9% 250 ml @ 250 mls/hr IVPB DAILY [facility] Rx#:[id number] Heparin Sod,Pork in 0.45% 112.538 NaCl 25,000 unit In 0.45 % NaCl 1 250ml.bag @ 10.7 UNITS/KG/HR 10.026 mls/ hr IV .Q24H [facility] Rx#: [id number] Vancomycin 1,500 mg In 500 Sodium Chloride 0.9% 500 ml 500 ml @ 167 mls/hr IVPB Q24H [facility] Rx#: [id number] Oral 100 Output: Urine 1080 1190 615 Other: Voiding Method Indwelling Catheter Indwelling Catheter Indwelling Catheter # Bowel Movements 1 - Exam General: The patient is awake and alert, anxious, on 3 L nasal cannula Skin: Skin is warm and dry and no rashes or lesions are noted. Eye: Pupils are equal, round and reactive to light, extra-ocular movements are intact Ears, nose, mouth and throat: There are moist mucous membranes and no oral lesions. Neck: The neck is supple, there is no tenderness or JVD. Cardiovascular: There is a regular rate and rhythm. No murmur, rub or gallop is appreciated. Respiratory: Mild wheezing on forced expiratory maneuver only. Otherwise lungs are fairly clear. Gastrointestinal: Soft, non-distended, non-tender abdomen without masses or organomegaly noted. There is no rebound or guarding present. Bowel sounds are unremarkable. Back: There is no tenderness to palpation in the midline. There is no obvious deformity. Musculoskeletal: Normal ROM, no tenderness, There is no pedal edema. There is no calf tenderness or swelling. No cords were appreciated. Neurological: CN II-XII intact, Cranial nerves III through XII are intact. There are no obvious motor or sensory deficits. Coordination appears grossly intact. Speech is normal. Psychiatric: Anxious, normal affect, and normal mental status examination otherwise. - Labs CBC & Chem 7: 12/20/23 03:16 12/20/23 03:16 Labs: Abnormal Lab Results - Last 24 Hours (Table) 12/19/23 12/19/23 12/20/23 Range/Units 16:35 20:01 03:16 APTT 20.5 L (22.0-30.0) sec Carbon Dioxide (22-30) mmol/L BUN (7-17) mg/dL Glucose (74-99) mg/dL POC Glucose (mg/dL) 305 H 300 H (70-110) mg/dL 12/20/23 12/20/23 12/20/23 Range/Units 03:16 06:36 11:17 APTT (22.0-30.0) sec Carbon Dioxide 31 H (22-30) mmol/L BUN 40 H (7-17) mg/dL Glucose 168 H (74-99) mg/dL POC Glucose (mg/dL) 197 H 198 H (70-110) mg/dL Microbiology - Last 24 Hours (Table) 12/18/23 10:30 Blood Culture - Preliminary Blood 12/18/23 10:45 Blood Culture Gram Stain - Preliminary Blood Assessment and Plan Assessment: Impression: Acute on chronic hypoxic respiratory failure secondary to COPD exacerbation and acute systolic congestive heart failure. Acute exacerbation of COPD Acute systolic congestive heart failure, ejection fraction of 30% Generalized anxiety disorder Bipolar disorder Obesity with BMI of 35.5 Chronic hypoxic respiratory failure on home O2 Type 2 diabetes without complications Remote history of CVA without neurological deficit Benign essential hypertension Gram-positive bacteremia, on vancomycin empirically, final identification is pending. Recommendations: Transfer patient to cardiac floor. Continue bronchodilators, DuoNeb, Pulmicort, Perforomist, Continue steroids Continue diuretics Continue vancomycin for now, more blood cultures were ordered, awaiting the final identification and sensitivity on the previously positive blood cultures Use BiPAP as needed if necessary. Continue Ativan and continue Seroquel Will continue to follow. Time with Patient: Less than 30
--- NOTE | 2023-12-20 12:49 | CONS ---
CONSULTATION HISTORY OF PRESENT ILLNESS: Libby is a 78-year-old lady with history of hypertension, diabetes, dyslipidemia, and prior CVA, was admitted to hospital with congestive heart failure exacerbation. The echocardiogram that she had shows an ejection fraction of 50%. MEDICATIONS: The patient is currently on, 1. Aspirin. 2. Lipitor. 3. Lasix 40 mg IV q.12. 4. Levemir. 5. Ativan. 6. Melatonin. 7. Entresto. PHYSICAL EXAMINATION: VITAL SIGNS: Heart rate is 90 beats, blood pressure is 106/59, respiratory rate is 18, and O2 saturation is 97% on room air. NECK: There is no jugular venous distention. Carotid upstroke is normal. There is no bruit. CHEST: Reveals good air entry bilaterally. HEART: Reveals first and second heart sounds and a systolic murmur at the apex. ABDOMEN: Soft. EXTREMITIES: Reveal bilateral pitting edema. LAB: Show a hemoglobin of 11.8, platelet count is 313. Potassium is 4, creatinine is 0.85. ASSESSMENT AND PLAN: 1. Cardiomyopathy. 2. Acute exacerbation of chronic systolic heart failure. 3. Elevated troponin secondary to type 2 myocardial infarction. PLAN: Patient is doing better. I will continue her on the IV Lasix if she is on. MMODL / IJN: [id number] /
--- NOTE | 2023-12-20 14:09 | P.PN ---
Subjective Progress Note Date: 12/19/23 (seen on 12/19/23 at 0930) Patient is a 78-year-old female with a history of COPD with ongoing tobacco abuse, insulin-dependent diabetes, and acid reflux who presented to the ER due to worsening shortness of breath. On arrival to the ER her vital signs were remarkable for a pulse of 120, blood pressure 162/30. She had excessive work of breathing and was therefore placed on BiPAP. Laboratory analysis included CBC, coags, CMP, troponin, and BNP which were remarkable for carbon dioxide 19, anion gap 13, glucose 272, magnesium 1.4, troponin 0.153, and BNP 3440. Chest x-ray was consitent with increased pulmonary vasculature. She was given steroids, bronchodilators, and Lasix in the emergency department. She was placed on Zithromax. Case was discussed with pulmonary who recommended admission to the ICU. Cardio was consulted. She was able to come of Bipap on the morning of 12/18. Patient seen and examined at bedside. Feeling better than yesterday. No chest pain, no shrotness of breath . Vital signs reviewed General: Nontoxic, no distress, appears at stated age Cardiovascular: S1S2 reg, no murmur Lungs: Diffuse wheezing b/l, 3 word conversational dyspnea, no accessory muscle use Abdominal: Soft, nontender to palpation, no guarding Ext: No gross muscle atrophy, no edema b/l lower extremities, no contractures Neuro: CN II-XI grossly intact, no focal neuro deficits Psych: Alert, oriented, appropriate affect Assessment/Plan: Acute exacerbation of COPD Acute hypoxic respiratory failure Acute systolic CHF with EF 30% Non-ST segment elevated myocardial infarction, type I versus type II - Critical care recs reviewed: transition to prednisone 30 mg daily -Zithromax 500 mg IV daily dose #2 of 3 -Cardiology note reviewed: Continue Lasix, stop IV heparin -Wean O2 as able Diabetes mellitus type 2 insulin requiring with hyperglycemia -Levemir 16 units at night, sliding scale insulin, NovoLog 2 units with meals, A1c 7.6 GERD -Protonix 40 mg daily Tobacco absue - cessation - nicotine patch 21 mcg daily Imaging: Echocardiogram with ejection fraction 30%, Data Review: Labs reviewed from today include CBC, coags, CMP, and magnesium level which are remarkable for BUN 33, glucose 294, and magnesium 1.4. DVT prophylaxis: Heparin Anticipated discharge date: Pending clinical course Anticipated discharge place: Pending clinical course This dictation was prepared using [employer] voice recognition software. Though every attempt is made to correct errors during dictation some may still exist. Objective - Vital Signs Vital signs: Vital Signs Temp 97.8 F 12/20/23 12:00 Pulse 93 12/20/23 12:00 Resp 27 H 12/20/23 12:00 BP 106/72 12/20/23 12:00 Pulse Ox 92 L 12/20/23 12:00 FiO2 40 12/20/23 06:00 Intake & Output 12/19/23 12/20/23 12/20/23 18:59 06:59 18:59 Intake Total 192.538 220 810 Output Total 1080 1190 1315 Balance -887.462 -970 -505 Weight 95.1 kg 90 kg Intake: IV 80 120 60 KVO 80 120 60 Intake, IV Titration 112.538 750 Amount Azithromycin 500 mg In 250 Sodium Chloride 0.9% 250 ml @ 250 mls/hr IVPB DAILY [facility] Rx#:[id number] Heparin Sod,Pork in 0.45% 112.538 NaCl 25,000 unit In 0.45 % NaCl 1 250ml.bag @ 10.7 UNITS/KG/HR 10.026 mls/ hr IV .Q24H [facility] Rx#: [id number] Vancomycin 1,500 mg In 500 Sodium Chloride 0.9% 500 ml 500 ml @ 167 mls/hr IVPB Q24H [facility] Rx#: [id number] Oral 100 Output: Urine 1080 1190 1315 Other: Voiding Method Indwelling Catheter Indwelling Catheter Indwelling Catheter # Bowel Movements 1 - Labs CBC & Chem 7: 12/20/23 03:16 12/20/23 03:16 Labs: Abnormal Lab Results - Last 24 Hours (Table) 12/19/23 12/19/23 12/20/23 Range/Units 16:35 20:01 03:16 APTT 20.5 L (22.0-30.0) sec Carbon Dioxide (22-30) mmol/L BUN (7-17) mg/dL Glucose (74-99) mg/dL POC Glucose (mg/dL) 305 H 300 H (70-110) mg/dL 12/20/23 12/20/23 12/20/23 Range/Units 03:16 06:36 11:17 APTT (22.0-30.0) sec Carbon Dioxide 31 H (22-30) mmol/L BUN 40 H (7-17) mg/dL Glucose 168 H (74-99) mg/dL POC Glucose (mg/dL) 197 H 198 H (70-110) mg/dL Microbiology - Last 24 Hours (Table) 12/18/23 10:30 Blood Culture - Preliminary Blood 12/18/23 10:45 Blood Culture Gram Stain - Preliminary Blood
--- NOTE | 2023-12-20 14:17 | P.PN ---
Subjective Progress Note Date: 12/20/23 (delayed charting seen at 1005) Patient is a 78-year-old female with a history of COPD with ongoing tobacco abuse, insulin-dependent diabetes, and acid reflux who presented to the ER due to worsening shortness of breath. On arrival to the ER her vital signs were remarkable for a pulse of 120, blood pressure 162/30. She had excessive work of breathing and was therefore placed on BiPAP. Laboratory analysis included CBC, coags, CMP, troponin, and BNP which were remarkable for carbon dioxide 19, anion gap 13, glucose 272, magnesium 1.4, troponin 0.153, and BNP 3440. Chest x-ray was consitent with increased pulmonary vasculature. She was given steroids, bronchodilators, and Lasix in the emergency department. She was placed on Zithromax. Case was discussed with pulmonary who recommended admission to the ICU. Cardio was consulted. She was able to come of Bipap on the morning of 12/18.Came back with ejection fraction 30%. She was started on Entresto. She has awake and alert. She does have some shortness of breath today. She denies any chest discomfort. We did discuss her new diagnosis of congestive heart failure and all questions were answered. Vital signs reviewed General: Nontoxic, no distress, appears at stated age Cardiovascular: S1S2 reg, no murmur Lungs: Diffuse wheezing b/l, 3 word conversational dyspnea, no accessory muscle use Abdominal: Soft, nontender to palpation, no guarding Ext: No gross muscle atrophy, no edema b/l lower extremities, no contractures Neuro: CN II-XI grossly intact, no focal neuro deficits Psych: Alert, oriented, appropriate affect Assessment/Plan: Acute exacerbation of COPD Acute hypoxic respiratory failure Non-ST segment elevated myocardial infarction, type I versus type II -Pulmonary note reviewed: Transfer to cardiac floor, continue steroids and diuretics, continue vancomycin. -Completed Zithromax 500 mg IV daily -Cardiology note reviewed: Continue IV Lasix. -Wean O2 as able -Continue with DuoNebs 4 times daily and as needed, budesonide 0.5 twice daily, formoterol 20 mcg twice daily -Prednisone 30 mg daily Acute systolic CHF with EF 30% -Hold off on beta-apryl as patient has acutely does compensated systolic congestive heart failure that is newly discovered and active wheezing from acute exacerbation of COPD. -Add Aldactone 25 mg daily -Lasix 40 mg IV push every 12 hours -Strict I's and O's, daily weights Diabetes mellitus type 2 insulin requiring with hyperglycemia -Levemir 16 units at night, sliding scale insulin, NovoLog 2 units with meals, A1c 7.6 GERD -Protonix 40 mg daily Blood culture 1/2 growing GPC's -Await identification -Vancomycin with pharmacy to dose via weight, creatinine, and trough levels. Monitor for toxicity. Tobacco absue - cessation - nicotine patch 21 mcg daily Imaging: None new Data Review: Labs reviewed from today include CBC and basic metabolic profile which are remarkable for BUN 40 and magnesium 1.8. Blood culture 1 of 2 gram-positive cocci in clusters DVT prophylaxis: Heparin Anticipated discharge date: Pending clinical course Anticipated discharge place: Pending clinical course This dictation was prepared using [employer] voice recognition software. Though every attempt is made to correct errors during dictation some may still exist. Objective - Vital Signs Vital signs: Vital Signs Temp 97.8 F 12/20/23 12:00 Pulse 93 12/20/23 12:00 Resp 27 H 12/20/23 12:00 BP 106/72 12/20/23 12:00 Pulse Ox 92 L 12/20/23 12:00 FiO2 40 12/20/23 06:00 Intake & Output 12/19/23 12/20/23 12/20/23 18:59 06:59 18:59 Intake Total 192.538 220 810 Output Total 1080 1190 1315 Balance -887.462 -970 -505 Weight 95.1 kg 90 kg Intake: IV 80 120 60 KVO 80 120 60 Intake, IV Titration 112.538 750 Amount Azithromycin 500 mg In 250 Sodium Chloride 0.9% 250 ml @ 250 mls/hr IVPB DAILY [facility] Rx#:[id number] Heparin Sod,Pork in 0.45% 112.538 NaCl 25,000 unit In 0.45 % NaCl 1 250ml.bag @ 10.7 UNITS/KG/HR 10.026 mls/ hr IV .Q24H [facility] Rx#: [id number] Vancomycin 1,500 mg In 500 Sodium Chloride 0.9% 500 ml 500 ml @ 167 mls/hr IVPB Q24H [facility] Rx#: [id number] Oral 100 Output: Urine 1080 1190 1315 Other: Voiding Method Indwelling Catheter Indwelling Catheter Indwelling Catheter # Bowel Movements 1 - Labs CBC & Chem 7: 12/20/23 03:16 12/20/23 03:16 Labs: Abnormal Lab Results - Last 24 Hours (Table) 12/19/23 12/19/23 12/20/23 Range/Units 16:35 20:01 03:16 APTT 20.5 L (22.0-30.0) sec Carbon Dioxide (22-30) mmol/L BUN (7-17) mg/dL Glucose (74-99) mg/dL POC Glucose (mg/dL) 305 H 300 H (70-110) mg/dL 12/20/23 12/20/23 12/20/23 Range/Units 03:16 06:36 11:17 APTT (22.0-30.0) sec Carbon Dioxide 31 H (22-30) mmol/L BUN 40 H (7-17) mg/dL Glucose 168 H (74-99) mg/dL POC Glucose (mg/dL) 197 H 198 H (70-110) mg/dL Microbiology - Last 24 Hours (Table) 12/18/23 10:30 Blood Culture - Preliminary Blood 12/18/23 10:45 Blood Culture Gram Stain - Preliminary Blood
[2023-12-20 16:08] LABS: Glucose,Whole Blood 355 mg/dL (70-110)
[2023-12-20 20:24] LABS: Glucose,Whole Blood 195 mg/dL (70-110)
[2023-12-21 06:03] LABS: Glucose,Whole Blood 146 mg/dL (70-110)
[2023-12-21 06:18] LABS: Glucose,Whole Blood 133 mg/dL (70-110)
[2023-12-21] MEDS: hydrALAZINE HCL 25 MG TAB PO STA (06:20)
[2023-12-21 06:23] LABS: Basophils % (A) 0 %; Eosinophils # (A) 0.2 k/uL (0-0.7); Eosinophils % (A) 2 %; HCT 39.2 % (34.0-46.0); HGB 12.5 gm/dL (11.4-16.0); Lymphocytes # (A) 2.4 k/uL (1.0-4.8); Lymphocytes % (A) 33 %; MCH 29.7 pg (25.0-35.0); MCHC 31.9 g/dL (31.0-37.0); Mean Platelet Volume 7.3; Monocytes # (A) 0.7 k/uL (0-1.0); Monocytes % (A) 9 %; Neutrophils # (A) 3.9 k/uL (1.3-7.7); Neutrophils % (A) 53 %; Platelet Count 304 k/uL (150-450); RBC 4.21 m/uL (3.80-5.40); RDW 13.2 % (11.5-15.5); WBC 7.2 k/uL (3.8-10.6)
[2023-12-21 06:31] LABS: African American GFR (CKD) 81 (>60 ml/min/1.73 sqM); Anion Gap 3 mmol/L; Blood Urea Nitrogen 30 mg/dL (7-17); Calcium 9.2 mg/dL (8.4-10.2); Carbon Dioxide 33 mmol/L (22-30); Chloride 101 mmol/L (98-107); Glucose 153 mg/dL (74-99); Magnesium 1.7 mg/dL (1.6-2.3); Non-African American GFR(CKD) 70 (>60 ml/min/1.73 sqM); Sodium 137 mmol/L (137-145)
[2023-12-21] MEDS: MAGNESIUM SULFATE-D5W PMX 1 GM in DEXTROSE/WATER 1 100ML.BAG IVPB ONE (08:16)
--- NOTE | 2023-12-21 10:43 | P.PN ---
Subjective Progress Note Date: 12/21/23 Principal diagnosis: Acute hypoxic respiratory failure secondary to acute COPD exacerbation and acute systolic congestive heart failure, 30% ejection fraction This is a 78-year-old female patient who presented emergency with significant respiratory distress attributed to COPD exacerbation. The patient is known to have COPD and she smokes around 1 pack of cigarettes a day. She is oxygen dependent. She uses albuterol rescue inhaler and nebulized updrafts on an outpatient basis. She also uses an oral Ellipta as maintenance. She is obese with a body mass 35.5 and the patient also has diabetes mellitus, previous history of CVA without any residual deficits, and hypertension. The patient was initially evaluated in the ED. Following that, the patient was moved to the intensive care unit and the patient is currently on a BiPAP pressure of 12/6 with an FiO2 of 40%. She is urinating a tidal volume of around 300. She is actively bronchospastic and wheezy. No angina. No palpitation. Is arousable. No hemodynamic instability. No chest pain. Chest x-ray shows increased pulm vascular markings consistent with CHF. She was given a dose of Lasix in the emergency with significant urine output and the patient will need a Feng catheter insertion. Troponins are 0.1 x 2 respectively. proBNP level is 3440. The viral screen was negative for COVID-19, RSV and influenza. The white cell count of 10.4 with a hemoglobin 13.4, normal coagulation profile, BUN is 21 with a creatinine of 0.8 and a sodium levels of 137. EKG showed a sinus tachycardia with some nonspecific T wave abnormalities and frequent premature ventricular complexes. Patient is arousable. He is able to tolerate the BiPAP without any major difficulties for now. Patient was evaluated today on 12/19/2023, seen in the ICU, patient is on 3 L nasal cannula, continues to have intermittent cough and wheezing, patient also has significant anxiety, intermittently has been on BiPAP 16/6/40%. Remains on Lasix at 40 mg IV push every 12 hours. Patient seems to be anxious, on physical examination she has minimal wheezing on forced expiratory maneuver. Patient is on lorazepam which has been increased, she is on steroids, she is also on bronchodilators, and diuretics. Clinically I believe the patient is improving, however she seems to be again a bit more anxious than expected. Patient is on Effexor she is also on Ativan, and I added Seroquel at 25 mg p.o. twice daily. Her labs were reviewed CBC is relatively normal basic metabolic profile is normal renal profile is normal Patient was reevaluated today on 12/20/2023, patient remains in the ICU, doing well, she is on 3 L nasal cannula, and she has BiPAP at bedside. Echocardiogram showed impaired LV function with ejection fraction of 30%. Patient had positive blood cultures showing gram-positive cocci in clusters, final identification is pending, hence the patient was empirically started on vancomycin yesterday. More blood cultures were ordered. Clinically the patient is hemodynamically stable, and not in distress. Remains on bronchodilators for her COPD, and she remains on Lasix 40 mg IV push for her congestive heart failure. Chest x-ray this morning is showing significant improvement, compared to chest x-ray on admi ssion. WBC count today is 9.2 hemoglobin 11.8, basic metabolic profile is normal BUN is 40 creatinine 0.85 Reevaluated today on 12/21/2023, patient remains in the ICU as an overflow, remains on vancomycin, however her blood cultures showing no coagulase-negative staph, will discontinue her vancomycin, the blood cultures are obviously contaminated. Her ejection fraction is 30%, patient is on 3 liters nasal cannula, does not seem to be in any distress. Feeling much better overall. Patient remains on bronchodilators, remains on Lasix 40 mg IV push twice daily, her anxiety seems to be under control, and the patient is steadily improving, does not seem to be in congestive heart failure Objective - Vital Signs Vital signs: Vital Signs Temp 98 F 12/21/23 08:00 Pulse 90 12/21/23 08:14 Resp 28 H 12/21/23 08:00 BP 110/57 12/21/23 08:00 Pulse Ox 94 L 12/21/23 08:00 FiO2 40 12/21/23 03:15 Intake & Output 12/20/23 12/21/23 12/21/23 18:59 06:59 18:59 Intake Total 850 100 Output Total 1865 1450 Balance -1015 -1350 Weight 90.5 kg Intake: IV 100 100 KVO 100 100 Intake, IV Titration 750 Amount Azithromycin 500 mg In 250 Sodium Chloride 0.9% 250 ml @ 250 mls/hr IVPB DAILY [facility] Rx#:[id number] Vancomycin 1,500 mg In 500 Sodium Chloride 0.9% 500 ml 500 ml @ 167 mls/hr IVPB Q24H [facility] Rx#: [id number] Output: Urine 1865 1450 Other: Voiding Method Indwelling Catheter Indwelling Catheter - Exam General: The patient is awake and alert, anxious, on 3 L nasal cannula Skin: Skin is warm and dry and no rashes or lesions are noted. Eye: Pupils are equal, round and reactive to light, extra-ocular movements are intact Ears, nose, mouth and throat: There are moist mucous membranes and no oral lesions. Neck: The neck is supple, there is no tenderness or JVD. Cardiovascular: There is a regular rate and rhythm. No murmur, rub or gallop is appreciated. Respiratory: Clear throughout no crackles rhonchi or wheezes Gastrointestinal: Soft, non-distended, non-tender abdomen without masses or organomegaly noted. There is no rebound or guarding present. Bowel sounds are unremarkable. Back: There is no tenderness to palpation in the midline. There is no obvious deformity. Musculoskeletal: Normal ROM, no tenderness, There is no pedal edema. There is no calf tenderness or swelling. No cords were appreciated. Neurological: CN II-XII intact, Cranial nerves III through XII are intact. There are no obvious motor or sensory deficits. Coordination appears grossly intact. Speech is normal. Psychiatric: Anxious, normal affect, and normal mental status examination otherwise. - Labs CBC & Chem 7: 12/21/23 05:45 12/21/23 05:45 Labs: Abnormal Lab Results - Last 24 Hours (Table) 12/20/23 12/20/23 12/20/23 Range/Units 11:17 16:07 20:22 Carbon Dioxide (22-30) mmol/L BUN (7-17) mg/dL Glucose (74-99) mg/dL POC Glucose (mg/dL) 198 H 355 H 195 H (70-110) mg/dL 12/21/23 12/21/23 12/21/23 Range/Units 05:45 06:02 06:16 Carbon Dioxide 33 H (22-30) mmol/L BUN 30 H (7-17) mg/dL Glucose 153 H (74-99) mg/dL POC Glucose (mg/dL) 146 H 133 H (70-110) mg/dL Microbiology - Last 24 Hours (Table) 12/18/23 10:45 Blood Culture Gram Stain - Preliminary Blood Blood Culture - Preliminary Coagulase Negative Staph 12/18/23 10:30 Blood Culture - Preliminary Blood Assessment and Plan Assessment: Impression: Acute on chronic hypoxic respiratory failure secondary to acute COPD exacerbation and acute systolic congestive heart failure. Acute exacerbation of COPD Acute systolic congestive heart failure, ejection fraction of 30% Generalized anxiety disorder Bipolar disorder Obesity with BMI of 35.5 Chronic hypoxic respiratory failure on home O2 Type 2 diabetes without complications Remote history of CVA without neurological deficit Benign essential hypertension Gram-positive bacteremia, coagulase-negative staph,/this is contamination Recommendations: Discontinue vancomycin Transfer patient to cardiac floor. Continue bronchodilators, DuoNeb, Pulmicort, Perforomist, Continue steroids Continue diuretics Use BiPAP as needed if necessary. Continue anxiolytic medication Discharge planning in the next 24 to 48 hours. Will continue to follow. Time with Patient: Less than 30
--- NOTE | 2023-12-21 11:27 | XR ---
EXAMINATION TYPE: XR chest 1V portable DATE OF EXAM: 12/21/2023 5:50 AM CLINICAL INDICATION:Female, 78 years old with history of shortness of breath; COMPARISON: Chest radiographs from 12/20/2023 TECHNIQUE: XR chest 1V portable Frontal view of the chest. FINDINGS: Lungs/Pleura: There is no evidence of pleural effusion, focal consolidation, or pneumothorax. Pulmonary vascularity: Unremarkable. Heart/mediastinum: Cardiomediastinal silhouette is unremarkable. Atherosclerotic calcifications are seen in the aorta. Musculoskeletal: No acute osseous pathology. Other findings: None IMPRESSION: No acute cardiopulmonary disease/process.
[2023-12-21 11:37] LABS: Glucose,Whole Blood 301 mg/dL (70-110)
--- NOTE | 2023-12-21 11:43 | P.PN ---
Subjective Progress Note Date: 12/21/23 Patient is a 78-year-old female with a history of COPD with ongoing tobacco abuse, insulin-dependent diabetes, and acid reflux who presented to the ER due to worsening shortness of breath. On arrival to the ER her vital signs were remarkable for a pulse of 120, blood pressure 162/30. She had excessive work of breathing and was therefore placed on BiPAP. Laboratory analysis included CBC, coags, CMP, troponin, and BNP which were remarkable for carbon dioxide 19, anion gap 13, glucose 272, magnesium 1.4, troponin 0.153, and BNP 3440. Chest x-ray was consitent with increased pulmonary vasculature. She was given steroids, bronchodilators, and Lasix in the emergency department. She was placed on Zithromax. Case was discussed with pulmonary who recommended admission to the ICU. Cardio was consulted. She was able to come of Bipap on the morning of 12/18. Echo came back with ejection fraction 30%. She was started on Entresto. She continues to improve. Oxygen was able to be down titrated. She has awake and alert. Patient seen and examined at bedside. She does report significant improvement in her breathing. No nausea or vomiting. Bowel movement yesterday. No other complaints currently. She is feeling well and hoping for discharge soon. Vital signs reviewed General: Nontoxic, no distress, appears at stated age Cardiovascular: S1S2 reg, no murmur Lungs: Decreased bs b/l, no accessory muscle use Abdominal: Soft, nontender to palpation, no guarding Ext: No gross muscle atrophy, no edema b/l lower extremities, no contractures Neuro: CN II-XI grossly intact, no focal neuro deficits Psych: Alert, oriented, appropriate affect Assessment/Plan: Acute exacerbation of COPD Acute hypoxic respiratory failure Non-ST segment elevated myocardial infarction, type I versus type II -Pulmonary note reviewed: Discontinue vancomycin, transfer to cardiac floor. -Completed Zithromax 500 mg IV daily X 3 -Await further cardio recs -Wean O2 as able -Continue with DuoNebs 4 times daily and as needed, budesonide 0.5 twice daily, formoterol 20 mcg twice daily -Prednisone 30 mg daily Acute systolic CHF with EF 30% - Start COreg 3.125 mg BID, Entresto 1 tablet twice daily -Aldactone 25 mg daily -Lasix 40 mg IV push every 12 hours -Strict I's and O's, daily weights Diabetes mellitus type 2 insulin requiring with hyperglycemia -Levemir 16 units at night, sliding scale insulin, A1c 7.6 -Increase fixed dose NovoLog to 4 units with meals. GERD -Protonix 40 mg daily Blood culture 1/2 growing GPC's -Came back as coag negative staph. Discontinue vancomycin. Contaminant and not true infection Tobacco absue - cessation - nicotine patch 21 mcg daily Imaging: None new Data Review: Labs reviewed from today include CBC and basic metabolic profile which are remarkable for blood sugar 153. DVT prophylaxis: Heparin Anticipated discharge date: 24-[address]: Home with home health This dictation was prepared using [employer] voice recognition software. Though every attempt is made to correct errors during dictation some may still exist. Objective - Vital Signs Vital signs: Vital Signs Temp 98 F 12/21/23 08:00 Pulse 88 12/21/23 11:29 Resp 28 H 12/21/23 08:00 BP 110/57 12/21/23 08:00 Pulse Ox 94 L 12/21/23 08:00 FiO2 40 12/21/23 03:15 Intake & Output 12/20/23 12/21/23 12/21/23 18:59 06:59 18:59 Intake Total 850 100 Output Total 1865 1450 Balance -1015 -1350 Weight 90.5 kg Intake: IV 100 100 KVO 100 100 Intake, IV Titration 750 Amount Azithromycin 500 mg In 250 Sodium Chloride 0.9% 250 ml @ 250 mls/hr IVPB DAILY [facility] Rx#:[id number] Vancomycin 1,500 mg In 500 Sodium Chloride 0.9% 500 ml 500 ml @ 167 mls/hr IVPB Q24H [facility] Rx#: [id number] Output: Urine 1865 1450 Other: Voiding Method Indwelling Catheter Indwelling Catheter - Labs CBC & Chem 7: 12/21/23 05:45 12/21/23 05:45 Labs: Abnormal Lab Results - Last 24 Hours (Table) 12/20/23 12/20/23 12/21/23 Range/Units 16:07 20:22 05:45 Carbon Dioxide 33 H (22-30) mmol/L BUN 30 H (7-17) mg/dL Glucose 153 H (74-99) mg/dL POC Glucose (mg/dL) 355 H 195 H (70-110) mg/dL 12/21/23 12/21/23 12/21/23 Range/Units 06:02 06:16 11:35 Carbon Dioxide (22-30) mmol/L BUN (7-17) mg/dL Glucose (74-99) mg/dL POC Glucose (mg/dL) 146 H 133 H 301 H (70-110) mg/dL Microbiology - Last 24 Hours (Table) 12/18/23 10:45 Blood Culture Gram Stain - Preliminary Blood Blood Culture - Preliminary Coagulase Negative Staph 12/18/23 10:30 Blood Culture - Preliminary Blood
[2023-12-21] MEDS: carvediloL 3.125 MG TAB PO SCH (11:51)
[2023-12-21] MEDS: INSULIN ASPART (NovoLOG) 100 UNIT/ML VIAL SQ SCH (11:53)
[2023-12-21 16:18] LABS: Glucose,Whole Blood 218 mg/dL (70-110)
[2023-12-21 20:08] LABS: Glucose,Whole Blood 226 mg/dL (70-110)
--- NOTE | 2023-12-21 22:10 | PN ---
PROGRESS NOTE SUBJECTIVE: Libby is a 78-year-old lady with history of hypertension, diabetes, dyslipidemia, and prior CVA who is admitted to hospital with congestive heart failure exacerbation. She is feeling much better this morning. Currently on aspirin, Lipitor, Coreg, Lasix 40 mg IV q.12. PHYSICAL EXAMINATION: GENERAL: Afebrile. VITAL SIGNS: Stable. CHEST: Reveals good air entry bilaterally. HEART: Reveals first and second heart sounds. No gallop, no murmur. ABDOMEN: Soft. EXTREMITIES: Did not reveal any edema. Peripheral pulses are felt. ASSESSMENT AND PLAN: Acute exacerbation of chronic systolic heart failure. We will continue the IV Lasix. MMZAHEERL / IJN: [id number] /
[2023-12-22 06:11] LABS: Glucose,Whole Blood 164 mg/dL (70-110)
--- NOTE | 2023-12-22 08:41 | XR ---
EXAMINATION TYPE: XR chest 1V portable DATE OF EXAM: 12/22/2023 7:06 AM CLINICAL INDICATION:Female, 78 years old with history of shortness of breath; [facility] COMPARISON: Chest radiographs from 12/21/2023. TECHNIQUE: XR chest 1V portable Frontal view of the chest. FINDINGS: Lungs/Pleura: There is no evidence of pleural effusion, focal consolidation, or pneumothorax. Pulmonary vascularity: Unremarkable. Heart/mediastinum: Cardiomediastinal silhouette is enlarged and stable. Atherosclerotic calcificatio ns are seen in the aorta. Musculoskeletal: No acute osseous pathology. Other findings: None IMPRESSION: Cardiomegaly, no acute cardiopulmonary disease/process.
[2023-12-22 10:31] LABS: HCT 41.9 % (34.0-46.0); HGB 13.6 gm/dL (11.4-16.0); MCH 30.1 pg (25.0-35.0); MCHC 32.4 g/dL (31.0-37.0); MCV 92.8 fL (80.0-100.0); Mean Platelet Volume 7.7; Platelet Count 349 k/uL (150-450); RBC 4.52 m/uL (3.80-5.40); RDW 13.2 % (11.5-15.5); WBC 8.1 k/uL (3.8-10.6)
[2023-12-22 11:03] LABS: African American GFR (CKD) 87 (>60 ml/min/1.73 sqM); Anion Gap 11 mmol/L; Blood Urea Nitrogen 33 mg/dL (7-17); Calcium 9.5 mg/dL (8.4-10.2); Carbon Dioxide 29 mmol/L (22-30); Chloride 98 mmol/L (98-107); Glucose 224 mg/dL (74-99); Magnesium 1.6 mg/dL (1.6-2.3); Non-African American GFR(CKD) 76 (>60 ml/min/1.73 sqM); Potassium 3.9 mmol/L (3.5-5.1); Sodium 138 mmol/L (137-145)
[2023-12-22 11:28] LABS: Glucose,Whole Blood 193 mg/dL (70-110)
--- NOTE | 2023-12-22 13:11 | P.PN ---
Subjective Progress Note Date: 12/22/23 History of present illness: This is a 78-year-old female patient with past medical history of hypertension, diabetes, dyslipidemia with prior CVA. Patient was admitted to the hospital for congestive heart failure exacerbation. She has been on aspirin, Lipitor Coreg, Lasix 40 mg IV every 12 hours. Patient has been in the intensive care unit as overflow and transferred to the cardiac stepdown unit. Patient denies any shortness of breath today. No chest pain. Blood pressure 117/75, heart rate in the 80s. Repeat blood work reveals hemoglobin 13.6, potassium 3.9, sodium 138, BUN 33 and creatinine 0.76. Physical examination: Gen: This is a 78-year-old female in no acute distress. VS: reviewed LUNGS: Good air entry bilaterally. No intercostal retractions. HEART: Regular rate and rhythm. No murmur. EXTREMITIES: No pedal edema. No calf tenderness. NEUROLOGICAL: Patient is awake, alert and oriented x3. Assessment: Acute exacerbation of chronic systolic heart failure Plan: Transition IV Lasix to oral 40 mg twice daily Continue current cardiac medications Patient is cleared for discharge and may follow-up with Dr. Miller in 1 week. Nurse practitioner note has been reviewed, I agree with documented findings and plan of care. Patient was seen and examined. Objective - Vital Signs Vital signs: Vital Signs Temp 97.7 F 12/22/23 07:38 Pulse 90 12/22/23 10:27 Resp 23 12/22/23 10:15 BP 112/72 12/22/23 07:38 Pulse Ox 95 12/22/23 07:38 FiO2 40 12/21/23 03:15 Intake & Output 12/21/23 12/22/23 12/22/23 18:59 06:59 18:59 Intake Total 1000 180 Output Total 550 Balance 450 180 Weight 90 kg Intake: IV 60 Invasive Line 1 30 Invasive Line 2 30 Intake, IV Titration 600 Amount Magnesium Sulfate-D5w Pmx 100 1 gm In Dextrose/Water 1 100ml.bag @ 100 mls/hr IVPB ONCE ONE Rx#: [id number] Vancomycin 1,500 mg In 500 Sodium Chloride 0.9% 500 ml 500 ml @ 167 mls/hr IVPB Q24H [facility] Rx#: [id number] Oral 400 120 Output: Urine 550 Other: Voiding Method Indwelling Catheter Toilet # Voids 1 - Labs CBC & Chem 7: 12/22/23 09:11 12/22/23 09:11 Labs: Abnormal Lab Results - Last 24 Hours (Table) 12/21/23 12/21/23 12/21/23 Range/Units 11:35 16:16 20:06 POC Glucose (mg/dL) 301 H 218 H 226 H (70-110) mg/dL 12/22/23 Range/Units 06:09 POC Glucose (mg/dL) 164 H (70-110) mg/dL Microbiology - Last 24 Hours (Table) 12/18/23 10:30 Blood Culture - Preliminary Blood 12/20/23 10:03 Blood Culture - Preliminary Blood 12/18/23 10:45 Blood Culture Gram Stain - Preliminary Blood Blood Culture - Preliminary Coagulase Negative Staph
--- NOTE | 2023-12-22 13:47 | P.PN ---
Subjective Progress Note Date: 12/22/23 Principal diagnosis: Acute hypoxic respiratory failure secondary to acute COPD exacerbation and acute systolic congestive heart failure, 30% ejection fraction This is a 78-year-old female patient who presented emergency with significant respiratory distress attributed to COPD exacerbation. The patient is known to have COPD and she smokes around 1 pack of cigarettes a day. She is oxygen dependent. She uses albuterol rescue inhaler and nebulized updrafts on an outpatient basis. She also uses an oral Ellipta as maintenance. She is obese with a body mass 35.5 and the patient also has diabetes mellitus, previous history of CVA without any residual deficits, and hypertension. The patient was initially evaluated in the ED. Following that, the patient was moved to the intensive care unit and the patient is currently on a BiPAP pressure of 12/6 with an FiO2 of 40%. She is urinating a tidal volume of around 300. She is actively bronchospastic and wheezy. No angina. No palpitation. Is arousable. No hemodynamic instability. No chest pain. Chest x-ray shows increased pulm vascular markings consistent with CHF. She was given a dose of Lasix in the emergency with significant urine output and the patient will need a Feng catheter insertion. Troponins are 0.1 x 2 respectively. proBNP level is 3440. The viral screen was negative for COVID-19, RSV and influenza. The white cell count of 10.4 with a hemoglobin 13.4, normal coagulation profile, BUN is 21 with a creatinine of 0.8 and a sodium levels of 137. EKG showed a sinus tachycardia with some nonspecific T wave abnormalities and frequent premature ventricular complexes. Patient is arousable. He is able to tolerate the BiPAP without any major difficulties for now. Patient was evaluated today on 12/19/2023, seen in the ICU, patient is on 3 L nasal cannula, continues to have intermittent cough and wheezing, patient also has significant anxiety, intermittently has been on BiPAP 16/6/40%. Remains on Lasix at 40 mg IV push every 12 hours. Patient seems to be anxious, on physical examination she has minimal wheezing on forced expiratory maneuver. Patient is on lorazepam which has been increased, she is on steroids, she is also on bronchodilators, and diuretics. Clinically I believe the patient is improving, however she seems to be again a bit more anxious than expected. Patient is on Effexor she is also on Ativan, and I added Seroquel at 25 mg p.o. twice daily. Her labs were reviewed CBC is relatively normal basic metabolic profile is normal renal profile is normal Patient was reevaluated today on 12/20/2023, patient remains in the ICU, doing well, she is on 3 L nasal cannula, and she has BiPAP at bedside. Echocardiogram showed impaired LV function with ejection fraction of 30%. Patient had positive blood cultures showing gram-positive cocci in clusters, final identification is pending, hence the patient was empirically started on vancomycin yesterday. More blood cultures were ordered. Clinically the patient is hemodynamically stable, and not in distress. Remains on bronchodilators for her COPD, and she remains on Lasix 40 mg IV push for her congestive heart failure. Chest x-ray this morning is showing significant improvement, compared to chest x-ray on admi ssion. WBC count today is 9.2 hemoglobin 11.8, basic metabolic profile is normal BUN is 40 creatinine 0.85 Reevaluated today on 12/21/2023, patient remains in the ICU as an overflow, remains on vancomycin, however her blood cultures showing no coagulase-negative staph, will discontinue her vancomycin, the blood cultures are obviously contaminated. Her ejection fraction is 30%, patient is on 3 liters nasal cannula, does not seem to be in any distress. Feeling much better overall. Patient remains on bronchodilators, remains on Lasix 40 mg IV push twice daily, her anxiety seems to be under control, and the patient is steadily improving, does not seem to be in congestive heart failure Patient was reevaluated today on 12/22/2023, continues to do well, hardly any pulmonary symptoms, no cough no wheezing no shortness of breath, her Lasix was transitioned to oral Lasix at 40 mg twice daily. Pulmonary mackay on 2 L nasal cannula with O2 sats of 90% I believe the patient has made a significant improvement since admission. May require home O2 and that could be arranged for assuming the patient is cleared by cardiology for discharge. Objective - Vital Signs Vital signs: Vital Signs Temp 98.1 F 12/22/23 11:57 Pulse 84 12/22/23 12:46 Resp 25 H 12/22/23 11:57 BP 117/75 12/22/23 11:57 Pulse Ox 90 L 12/22/23 11:57 FiO2 40 02/14/24 03:15 Intake & Output 12/21/23 12/22/23 12/22/23 18:59 06:59 18:59 Intake Total 1000 180 Output Total 550 Balance 450 180 Weight 90 kg Intake: IV 60 Invasive Line 1 30 Invasive Line 2 30 Intake, IV Titration 600 Amount Magnesium Sulfate-D5w Pmx 100 1 gm In Dextrose/Water 1 100ml.bag @ 100 mls/hr IVPB ONCE ONE Rx#: [id number] Vancomycin 1,500 mg In 500 Sodium Chloride 0.9% 500 ml 500 ml @ 167 mls/hr IVPB Q24H [facility] Rx#: [id number] Oral 400 120 Output: Urine 550 Other: Voiding Method Indwelling Catheter Toilet # Voids 1 1 - Exam General: The patient is awake and alert,, on 2 L nasal cannula Skin: Skin is warm and dry and no rashes or lesions are noted. Eye: Pupils are equal, round and reactive to light, extra-ocular movements are intact Ears, nose, mouth and throat: There are moist mucous membranes and no oral lesions. Neck: The neck is supple, there is no tenderness or JVD. Cardiovascular: There is a regular rate and rhythm. No murmur, rub or gallop is appreciated. Respiratory: Clear throughout no crackles rhonchi or wheezes Gastrointestinal: Soft, non-distended, non-tender abdomen without masses or organomegaly noted. There is no rebound or guarding present. Bowel sounds are unremarkable. Back: There is no tenderness to palpation in the midline. There is no obvious deformity. Musculoskeletal: Normal ROM, no tenderness, There is no pedal edema. There is no calf tenderness or swelling. No cords were appreciated. Neurological: CN II-XII intact, Cranial nerves III through XII are intact. There are no obvious motor or sensory deficits. Coordination appears grossly intact. Speech is normal. Psychiatric: Anxious, normal affect, and normal mental status examination otherwise. - Labs CBC & Chem 7: 12/22/23 09:11 12/22/23 09:11 Labs: Abnormal Lab Results - Last 24 Hours (Table) 12/21/23 12/21/23 12/22/23 Range/Units 16:16 20:06 06:09 BUN (7-17) mg/dL Glucose (74-99) mg/dL POC Glucose (mg/dL) 218 H 226 H 164 H (70-110) mg/dL 12/22/23 12/22/23 Range/Units 09:11 11:27 BUN 33 H (7-17) mg/dL Glucose 224 H (74-99) mg/dL POC Glucose (mg/dL) 193 H (70-110) mg/dL Microbiology - Last 24 Hours (Table) 12/18/23 10:30 Blood Culture - Preliminary Blood 12/20/23 10:03 Blood Culture - Preliminary Blood 12/18/23 10:45 Blood Culture Gram Stain - Preliminary Blood Blood Culture - Preliminary Coagulase Negative Staph Assessment and Plan Assessment: Impression: Acute on chronic hypoxic respiratory failure secondary to acute COPD exacerbation and acute systolic congestive heart failure. Acute exacerbation of COPD Acute systolic congestive heart failure, ejection fraction of 30% Generalized anxiety disorder Bipolar disorder Obesity with BMI of 35.5 Chronic hypoxic respiratory failure on home O2 Type 2 diabetes without complications Remote history of CVA without neurological deficit Benign essential hypertension Gram-positive bacteremia, coagulase-negative staph,/this is contamination Recommendations: Continue bronchodilators, DuoNeb, Pulmicort, Perforomist, Continue prednisone, 30 mg daily tapered over 2-week Continue diuretics Consider discharge planning if cleared by cardiology Continue anxiolytic medication Will continue to follow. While inpatient Time with Patient: Less than 30
--- NOTE | 2023-12-22 15:12 | P.DS ---
Providers Date of admission: 12/18/23 10:46 Expected date of discharge: 12/22/23 Attending physician: Cindy Gregory DO Consults: 12/18/23 10:46 Consult Physician Urgent Consulting Provider: Larisa Leija Consult Reason/Comments: Respiratory failure, on BiPAP Do you want consulting provider notified?: Yes Consult Physician Urgent Consulting Provider: John Pratt Consult Reason/Comments: eval and tx for cardiac/chf Do you want consulting provider notified?: Yes Primary care physician: [facility] Course: 78-year-old female with a history of COPD with ongoing tobacco abuse, insulin- dependent diabetes, and acid reflux who presented to the ER due to worsening shortness of breath. On arrival to the ER her vital signs were remarkable for a pulse of 120, blood pressure 162/30. She had excessive work of breathing and was therefore placed on BiPAP. Laboratory analysis included CBC, coags, CMP, troponin, and BNP which were remarkable for carbon dioxide 19, anion gap 13, glucose 272, magnesium 1.4, troponin 0.153, and BNP 3440. Chest x-ray was consitent with increased pulmonary vasculature. She was given steroids, bronchodilators, and Lasix in the emergency department. She was placed on Zithromax. Case was discussed with pulmonary who recommended admission to the ICU. Cardio was consulted. She was able to come of BiPAP on the morning of 12/18. Echo came back with ejection fraction 30%. She was started on Entresto, Coreg and ASA. Lasix was switched from IV to 40 mg PO BID. 12/22 Patient was seen and examined. She reports feeling back to baseline and would like to go home. Cardiology and Pulmonary cleared the patient for discharge. She will need home O2 and nebulizer prior to discharge. Prescrition sent for Prednisone taper, ASA, Lasix, DuoNeb, Entresto and Coreg. Follow up with Cardiology in 1 week and Pulmonology in 2 weeks of discharge. Vital signs reviewed General: Nontoxic, no distress, appears at stated age Cardiovascular: S1S2 reg, no murmur Lungs: Decreased bs b/l, no accessory muscle use Abdominal: Soft, nontender to palpation, no guarding Ext: No gross muscle atrophy, no edema b/l lower extremities, no contractures Neuro: no focal neuro deficits Psych: Alert, oriented, appropriate affect Discharge Diagnosis: Acute exacerbation of COPD Acute hypoxic respiratory failure Non-ST segment elevated myocardial infarction, type I versus type II Acute systolic CHF with EF 30% Diabetes mellitus with hyperglycemia GERD Gram positive bacteremia Tobacco abuse This complex discharge took 35 minutes to complete. Patient Condition at Discharge: Stable Plan - Discharge Summary Discharge Rx Participant: Yes New Discharge Prescriptions: New RX: carvediloL [Coreg] 3.125 mg PO BID-W/MEALS #60 tab RX: Sacubitril/Valsartan [Entresto 24 mg-26 mg Tablet] 1 each PO BID #60 tab Ipratropium-Albuterol Nebulize [Duoneb 0.5 mg-3 mg/3 ml Soln] 3 ml INHALATION TID PRN #90 ml PRN Reason: Shortness Of Breath Or Wheezing RX: Aspirin 81 mg PO DAILY #30 tab RX: Furosemide [Lasix] 40 mg PO BID@0900,1600 #60 tab RX: predniSONE See Taper PO DAILY #24 tab Continue RX: Omeprazole 20 mg PO BID RX: Venlafaxine HCl ER [Effexor XR] 150 mg PO BID RX: Atorvastatin [Lipitor] 40 mg PO HS #30 tab RX: Salmeterol 50 mcg [Serevent Diskus] 1 puff INHALATION RT-BID RX: metFORMIN HCL 500 mg PO BID RX: Umeclidinium Brm/Vilanterol Tr [Anoro Ellipta 62.5-25 Mcg INH] 1 puff INHALATION RT-DAILY RX: Insulin Regular, Human [NovoLIN R] 30 unit SQ DIRECTED RX: Lisinopril-Hctz 10-12.5 mg [Zestoretic 10-12.5] 1 tab PO DAILY RX: Albuterol Inhaler [Ventolin Hfa Inhaler] 1 - 2 puff INHALATION RT-Q6H PRN PRN Reason: Shortness Of Breath Discharge Medication List RX: Omeprazole 20 mg PO BID 02/13/16 [History] RX: Venlafaxine HCl ER [Effexor XR] 150 mg PO BID 02/13/16 [History] RX: Atorvastatin [Lipitor] 40 mg PO HS #30 tab 02/16/16 [Rx] RX: Albuterol Inhaler [Ventolin Hfa Inhaler] 1 - 2 puff INHALATION RT-Q6H PRN 12/18/23 [History] RX: Insulin Regular, Human [NovoLIN R] 30 unit SQ DIRECTED 12/18/23 [History] RX: Lisinopril-Hctz 10-12.5 mg [Zestoretic 10-12.5] 1 tab PO DAILY 12/18/23 [History] RX: Salmeterol 50 mcg [Serevent Diskus] 1 puff INHALATION RT-BID 12/18/23 [History] RX: Umeclidinium Brm/Vilanterol Tr [Anoro Ellipta 62.5-25 Mcg INH] 1 puff INHALATION RT-DAILY 12/18/23 [History] RX: metFORMIN HCL 500 mg PO BID 12/18/23 [History] Ipratropium-Albuterol Nebulize [Duoneb 0.5 mg-3 mg/3 ml Soln] 3 ml INHALATION TID PRN #90 ml 12/22/23 [Rx] RX: Aspirin 81 mg PO DAILY #30 tab 12/22/23 [Rx] RX: Furosemide [Lasix] 40 mg PO BID@0900,1600 #60 tab 12/22/23 [Rx] RX: Sacubitril/Valsartan [Entresto 24 mg-26 mg Tablet] 1 each PO BID #60 tab 12/22/23 [Rx] RX: carvediloL [Coreg] 3.125 mg PO BID-W/MEALS #60 tab 12/22/23 [Rx] RX: predniSONE See Taper PO DAILY #24 tab 12/22/23 [Rx] Follow up Appointment(s)/Referral(s): Franky Miller MD [Medical Doctor] - 1 Week [facility], [NON-STAFF] - 1 Week ([facility] will call you to arrange a visit) Larisa Leija MD [STAFF PHYSICIAN] - 2 Weeks Alexander Barros MD [Primary Care Provider] - 1-2 days
[2023-12-22] MEDS: FUROSEMIDE 40 MG TAB PO SCH (16:24)
[2023-12-22 16:33] VITALS: PULSE 86
[2023-12-22 16:34] VITALS: BP 166/93; RESP 26; TEMP 97.7
[2023-12-22 16:45] LABS: Glucose,Whole Blood 364 mg/dL (70-110)
== END 2023-12-22 18:27 | disposition home health service (06) | DRG 280 ==
LOC: EC 08:59 → 3SCARD 10:46 → 2SICU 11:29 → 3SCARD 12-21 15:52
PROVIDERS: ADMIT Internal Medicine; ATTEND Internal Medicine
PROC: 5A09457 Assistance with Respiratory Ventilation, 24-96 Consecutive Hours, Continuous Positive Airway Pressure (ICD-10-PCS; principal; 2023-12-18)
DX: I11.0 Hypertensive heart disease with heart failure (principal); I21.A1 Myocardial infarction type 2; I50.23 Acute on chronic systolic (congestive) heart failure; J96.21 Acute and chronic respiratory failure with hypoxia; J44.1 Chronic obstructive pulmonary disease with (acute) exacerbation; Z11.52 Encounter for screening for COVID-19; J44.0 Chronic obstructive pulmonary disease with (acute) lower respiratory infection; R78.81 Bacteremia; I42.9 Cardiomyopathy, unspecified; Z82.49 Family history of ischemic heart disease and other diseases of the circulatory system; Z79.4 Long term (current) use of insulin; K21.9 Gastro-esophageal reflux disease without esophagitis; Z79.899 Other long term (current) drug therapy; E11.649 Type 2 diabetes mellitus with hypoglycemia without coma; Z68.35 Body mass index [BMI] 35.0-35.9, adult; E66.9 Obesity, unspecified; F17.210 Nicotine dependence, cigarettes, uncomplicated; E78.5 Hyperlipidemia, unspecified; F31.9 Bipolar disorder, unspecified; B96.89 Other specified bacterial agents as the cause of diseases classified elsewhere; F41.1 Generalized anxiety disorder; I49.3 Ventricular premature depolarization; I08.1 Rheumatic disorders of both mitral and tricuspid valves; Z79.82 Long term (current) use of aspirin; Z79.84 Long term (current) use of oral hypoglycemic drugs; Z86.73 Personal history of transient ischemic attack (TIA), and cerebral infarction without residual deficits; Z98.51 Tubal ligation status; Z90.49 Acquired absence of other specified parts of digestive tract; Z98.42 Cataract extraction status, left eye; Z98.41 Cataract extraction status, right eye; Z96.1 Presence of intraocular lens; Z86.010 Personal history of colon polyps; Z99.81 Dependence on supplemental oxygen; Z71.6 Tobacco abuse counseling
CPT/HCPCS: 36415; 36600; 71045; 80048; 80053; 82805; 83036; 83605; 83735; 83880; 84100; 84484; 85025; 85027; 85610; 85730; 87040; 87636; 93005; 93306; 94640; 94660; 94668; 96365; 96366; 96375; 96376; 99291

== ENCOUNTER 2024-05-18 17:35 | Emergency (ER) | payer MEDICARE ==
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
[2024-05-18 22:30] LABS: Basophils % (A) 1 %; Eosinophils # (A) 0.2 k/uL (0-0.7); Eosinophils % (A) 4 %; HCT 40.1 % (34.0-46.0); HGB 13.1 gm/dL (11.4-16.0); Lymphocytes % (A) 32 %; MCH 30.6 pg (25.0-35.0); MCHC 32.6 g/dL (31.0-37.0); MCV 93.8 fL (80.0-100.0); Mean Platelet Volume 7.3; Monocytes # (A) 0.3 k/uL (0-1.0); Monocytes % (A) 6 %; Neutrophils # (A) 3.4 k/uL (1.3-7.7); Neutrophils % (A) 55 %; Platelet Count 254 k/uL (150-450); RBC 4.27 m/uL (3.80-5.40); WBC 6.1 k/uL (3.8-10.6)
[2024-05-18 22:41] LABS: ALT 21 U/L (4-34); AST 19 U/L (14-36); African American GFR (CKD) 79 (>60 ml/min/1.73 sqM); Albumin 3.9 g/dL (3.5-5.0); Alkaline Phosphatase 101 U/L (38-126); Anion Gap 9 mmol/L; Blood Urea Nitrogen 16 mg/dL (7-17); Calcium 9.2 mg/dL (8.4-10.2); Carbon Dioxide 22 mmol/L (22-30); Chloride 107 mmol/L (98-107); Glucose 138 mg/dL (74-99); Non-African American GFR(CKD) 68 (>60 ml/min/1.73 sqM); Potassium 4.3 mmol/L (3.5-5.1); Sodium 138 mmol/L (137-145); Total Bilirubin 0.3 mg/dL (0.2-1.3); Total Protein 6.2 g/dL (6.3-8.2)
[2024-05-19 06:03] LABS: Glucose,Whole Blood 140 mg/dL (70-110)
[2024-05-19] MEDS: ONDANSETRON 4 MG/2 ML VIAL IVP STA (06:05)
[2024-05-19] MEDS: ONDANSETRON ODT 4 MG TAB PO STA (06:08)
[2024-05-19 06:43] LABS: Amphetamine Screen,Urine Not Detected (NotDetected); Barbiturate Screen,Urine Not Detected (NotDetected); Benzodiazepines Screen,Urine Not Detected (NotDetected); Cocaine Screen,Urine Not Detected (NotDetected); Methadone Screen, Urine Not Detected (NotDetected); Opiate Screen,Urine Not Detected (NotDetected); Oxycodone Screen, Urine Not Detected (NotDetected); Phencyclidine Screen,Urine Not Detected (NotDetected); Tricyclic Antidepressant,Urine Not Detected (NotDetected); Urn Cannabinoid Scrn Detected (NotDetected)
[2024-05-19] MEDS: DAPAGLIFLOZIN PROPANEDIOL 10 MG TABLET PO SCH (08:42)
[2024-05-19] MEDS: metFORMIN 500 MG TAB PO SCH (08:42)
[2024-05-19] MEDS: ASPIRIN 81 MG PO SCH (08:42)
[2024-05-19] MEDS: VENLAFAXINE HCL ER 150 MG CAP PO SCH (08:42)
[2024-05-19] MEDS: SACUBITRIL/VALSARTAN 49 MG-51 MG TABLET PO SCH (08:42)
[2024-05-19 08:48] LABS: Appearance,Urine Cloudy (Clear); Bacteria,Urine Rare /hpf; Bilirubin,Urine Negative (Negative); Blood,Urine Negative (Negative); Color,Urine Colorless; Glucose,Urine (UA) 4+ (Negative); Ketones,Urine Negative (Negative); Leukocyte Esterase,Urine Large (Negative); Nitrite,Urine Negative (Negative); Protein,Urine Negative (Negative); RBC,Urine 3 /hpf (0-5); Specific Gravity,Urine 1.018 (1.001-1.035); Urobilinogen,Urine <2.0 mg/dL (<2.0); WBC,Urine 23 /hpf (0-5)
[2024-05-19] MEDS: hydrALAZINE HCL 20 MG/ML 1 ML VIAL IVP STA ×2 (10:30→11:08)
[2024-05-19] MEDS: LABETALOL 5 MG/ML VIAL MDV IVP STA (12:02)
[2024-05-19] MEDS: LORazepam 2 MG/ML INJ IV STA (12:03)
[2024-05-19] MEDS: ATORVASTATIN 40 MG TAB PO SCH (20:47)
[2024-05-19] MEDS: PANTOPRAZOLE 40 MG TABLET PO SCH (20:48)
[2024-05-19] MEDS: METOPROLOL SUCCINATE (ER) 25 MG TAB.ER.24H PO SCH (20:48)
[2024-05-19] MEDS: CLOPIDOGREL 75 MG TAB PO SCH (20:49)
[2024-05-20 09:04] VITALS: RESP 18
[2024-05-20 12:54] VITALS: BP 154/74; PULSE 96; TEMP 98.3
== END 2024-05-20 13:22 ==
LOC: EC 17:35
DX: F31.9 Bipolar disorder, unspecified (principal); Z11.52 Encounter for screening for COVID-19; F17.200 Nicotine dependence, unspecified, uncomplicated
CPT/HCPCS: 82075; 36415 ×2; 93005; 80053; 84484; 85025; 81001; 80306; 87636; 99285; 96374; 96375 ×3; 96376; J2060; J0360; J2405; J1920